=== PATIENT | male | born 1960 | race Two or more races ===

== ENCOUNTER 2025-09-18 09:57 | Inpatient (IN) | payer OTHER, SELFPAY ==
[2025-09-18] VITALS (9 sets, daily range): BP systolic 108–131; BP diastolic 56–72; PULSE 85–96; RESP 13–22; TEMP 36.8–38.3; O2SAT 84–100; BMI 26.6
--- NOTE | ~2025-09-18 | XR_ITS ---
EXAMINATION: XR CHEST CLINICAL INFORMATION: cough COMPARISON: None available. TECHNIQUE: Frontal view of the chest was obtained. FINDINGS: Devices: Overlying monitoring leads Cardiomediastinal: Cardiac silhouette size is within normal limits. Lungs and pleura: Central vascular prominence. Increased interstitial markings and hazy opacities. No confluent consolidation.. No significant effusion. No pneumothorax. Bones: No acute findings Miscellaneous: None. XR/XR chest 1V IMPRESSION: Vascular vascular interstitial prominence, with hazy opacities. This could be related to mild edema, or inflammatory/infectious process... Electronically signed by: Prateek Raines MD 09/18/2025 11:36 AM EST
--- NOTE | ~2025-09-18 | XR_ITS ---
EXAMINATION: XR FOOT, LEFT CLINICAL INFORMATION: concern for osteo, pain COMPARISON: None available. TECHNIQUE: AP, lateral, and oblique views of the left foot. FINDINGS: Small ossific density is present in the soft tissues lateral to the head of the fourth proximal phalanx is likely a chronic change. There is nonaggressive appearing erosion involving the lateral tuft of the first distal phalanx likely adjacent to an area of soft tissue ulceration. Moderate atherosclerotic calcifications are present in the foot and ankle. XR/XR foot LT min 3V IMPRESSION: Aggressive appearing focal erosion in the lateral tuft of the first distal phalanx adjacent an area of soft tissue ulceration is likely related to osteomyelitis. Electronically signed by: Daniel Hernandez MD 09/18/2025 11:41 AM [facility]
--- NOTE | ~2025-09-18 | XR_ITS ---
EXAMINATION: XR KNEE, RIGHT CLINICAL INFORMATION: concern for osteo of stump COMPARISON: None available. TECHNIQUE: Two views of the right knee. FINDINGS: Patient is status post above knee amputation. There is a slight undulation of the soft tissue of the amputation stump, clinically correlate for possible soft tissue abnormality such as soft tissue wound /ulceration. There is periosteal reaction along the distal aspect of the stump and the distal bone.. Vascular calcification. No soft tissue pneumatosis is seen. XR/XR knee RT 4V IMPRESSION: Status post above knee amputation. Clinically correlate for possible soft tissue wound/ulceration of the distal stump. There is periosteal reaction along the distal bone.. Findings raise concern for possible osteomyelitis. Recommend MRI without and with contrast for evaluation. Electronically signed by: Prateek Raines MD 09/18/2025 11:41 AM [facility]
--- NOTE | 2025-09-18 10:12 | ED_ITS ---
HPI - General Adult General Chief complaint: General Medical Stated complaint: Lower extremity edema Time Seen by Provider: 09/18/25 10:12 Source: patient and EMS Mode of arrival: EMS Limitations: no limitations History of Present Illness ED Provider: Kathy Lopez PA-C HPI narrative: Patient is a 65 year old assigned male at with a history of CAD, DM, HFrEF, HTN, PVD, polysubstance dependence, right AKA by Dr. Gardiner of [facility] on 08/01/2025 secondary to septic foot presenting to the emergency department today with significant lower extremity swelling and SOB. Patient states that he has been swollen the last few days and generally unwell. Patient currently residing at [facility]. Patient denies any other complaints at this time. Related Data Home Medications ?Medication ?Instructions ?Recorded ?Confirmed carvedilol 25 mg tablet 25 mg PO BID 09/18/25 clopidogrel 75 mg tablet 75 mg PO DAILY 09/18/25 furosemide 40 mg tablet 40 mg PO BID 09/18/25 insulin glargine 100 unit/mL (3 25 unit subcut DAILY 1 11/18/24 mL) subcutaneous pen (Lantus Solostar U-100 Insulin) insulin lispro 100 unit/mL 10 unit subcut DAILY subcutaneous pen losartan 25 mg tablet 25 mg PO DAILY 09/18/25 metformin 1,000 mg tablet 1,000 mg PO BID 09/18/25 pantoprazole 40 mg tablet,delayed 40 mg PO BID 5 release Allergies Allergy/AdvReac Type Severity Reaction Status Date / Time No Known Allergies Allergy Verified 09/18/25 10:15 Review of Systems 2 Constitutional: Constitutional: Reports as per HPI Eyes: Eyes: Reports as per HPI ENT: Reports as per HPI Cardiovascular: Cardiovascular: Reports as per HPI Respiratory: Respiratory: Reports as per HPI Gastrointestinal: Gastrointestinal: Reports as per HPI Genitourinary: Genitourinary: Reports as per HPI Musculoskeletal: Musculoskeletal: Reports as per HPI Integumentary/Breasts: Skin/Breast: Reports as per HPI Neurologic: Reports as per HPI Psychiatric: Psychiatric: Reports as per HPI Endocrine: Endocrine: Reports as per HPI Hematologic/Lymphatic: Hematologic/Lymphatic: Reports as per HPI Allergic/Immunologic: Allergic/Immunologic: Reports as per HPI [facility] Past Medical History Attestation statement: The following information was validated with the patient. Source: old records reviewed and nursing notes reviewed Medical History (Updated 09/18/25 @ 14:41 by RUDY Vidal) STEMI (ST elevation myocardial infarction) Peripheral neuropathy Chronic wound PAD (peripheral artery disease) Hypertension Diabetes mellitus CAD (coronary artery disease) HFrEF (heart failure with reduced ejection fraction) Surgical History (Updated 09/18/25 @ 14:26 by Adriana Johnson NP) H/O cardiac catheterization Hx of AKA (above knee amputation) Social History Social History Patient Tobacco Use Status: Never used Tobacco Smoked in Last 30 Days: No Use of substances other than those prescribed or required for medical reasons: No Advance Directives: No Advance Directives Information Provided: Yes Do you have a plan to hurt others: No Plan Nutrition Risks: No Nutritional Risk Physical Exam ED Vital Signs: Vital Signs - 24 hr 09/18/25 10:03 09/18/25 11:11 09/18/25 11:11 Temperature 100.9 F H Pulse Rate 96 85 Respiratory Rate 22 H 15 Blood Pressure 131/70 117/62 Pulse Oximetry 96 84 L 100 Oxygen Delivery Method Room Air Room Air Nasal Cannula Oxygen Flow Rate 2 09/18/25 11:29 09/18/25 11:40 Temperature 100.1 F Pulse Rate 85 Respiratory Rate 16 Blood Pressure 115/66 110/72 Pulse Oximetry 99 Oxygen Delivery Method Nasal Cannula Oxygen Flow Rate 2 BMI result Body Mass Index 26.6 Const General: cooperative, no acute distress, alert and awake Nutritional Appearance: well nourished Orientation/consciousness: patient oriented x3 HENMT Head: Yes normal to inspection and Yes atraumatic Ears: hearing grossly normal bilaterally and external ears normal General nose exam: Normal external nose present, no nasal discharge noted and no epistaxis Face and sinus: Yes normal facial exam, No abrasion and No laceration Mouth: Normal oral and palatal mucosa present, no drooling and no muffled voice Eyes General: appearance normal, both eyes and all related structures Periorbital: periorbital findings normal Eyelids: Yes eyelids normal Conjunctivae: conjunctivae normal Pupils: Equal, round and reactive pupils present EOM: EOMs intact bilaterally Neck Neck: Yes normal visual inspection and Yes full ROM Resp Effort & Inspection: normal respiratory effort and able to speak in complete sentences Auscultation: crackles bilateral at the base Other: Scrotal + penile swelling (genital exam performed with Director Of Respiratory Therapy Julisa Leigh RN) Neuro General: patient oriented x3, moves all extremities and CN's II-XI intact bilaterally Cranial nerves: Yes Equal, round and reactive pupils present Cognition (Neuro): normal cognition Extrem Other: Edema present to the right AKA stump Edema to the left lower extremity Erythema + warmth present to the right AKA surgical site Psych Appearance: grossly normal Mental Status: mental status grossly normal Affect: normal affect Attitude: cooperative Thought process: Normal thought process present Thought content: Normal thought content present Insight: Good insight present (Psych) Medications Administered Generic Name Dose Route Start Last Admin Trade Name Freq PRN Reason Stop Dose Admin Heparin Sodium (Porcine) 5,000 unit 09/18/25 13:00 09/18/25 13:53 Heparin Sodium,Porcine 5,000 Unit/Ml Vial SUBCUT 5,000 unit Q12H RAYMUNDO Administration Discontinued Medications Generic Name Dose Route Start Last Admin Trade Name Freq PRN Reason Stop Dose Admin Furosemide 20 mg 09/18/25 11:11 09/18/25 11:29 Furosemide 20 Mg/2 Ml Vial IVPUSH 09/18/25 11:12 20 mg ONCE ONE Administration Protocol Vancomycin HCl 2,000 mg in 500 mls @ 250 mls/hr 09/18/25 10:15 09/18/25 13:30 Vancomycin/Ns IV 09/18/25 12:14 Infused ONCE ONE Infusion Piperacillin Sod/Tazobactam 50 mls @ 100 mls/hr 09/18/25 10:17 09/18/25 11:39 Sod 3.375 gm/ Sodium Chloride IV 09/18/25 10:46 Infused ONCE ONE Infusion Acetaminophen 1,000 mg in 100 mls @ 400 mls/hr 09/18/25 10:28 09/18/25 10:58 Ofirmev IV 09/18/25 10:42 Infused ONCE ONE Infusion Medical Decision Making Medical Decision Making MDM Narrative: Patient is a 65 year old assigned male at with a history of CAD, DM, HFrEF, HTN, PVD, polysubstance dependence, right AKA by Dr. Gardiner of [facility] on 08/01/2025 secondary to septic foot presenting to the emergency department today with significant lower extremity swelling and SOB. Patient's physical exam was as noted in the physical exam portion of this note. Patient's right AKA incision was erythematous and warm to the touch. Patient's remaining portion of the right lower extremity is edematous. Patient's left great toe had an ulcerated wound on it. Patient's left lower extremity is edematous. Patient's scrotum + penis has edema. Patient was somewhat short of breath with crackles in the bases of his lungs. Patient was hypoxic at 84% on room air intermittently - placed on 2 liters of oxygen via nasal cannula which brought him up to 99%. Patient was febrile at 100.9 upon arrival. Patient's blood work showed an elevated WBC count of 12.9 with a left shift of 78.6%, ESR 42, CRP 2.67, BNP of 6254.8, AST 47, alk phos 458, albumin 2.8, BUN 41. Patient's right knee x-ray (right lower extremity stump) showed soft tissue wound / ulceration of the distal stump with periosteal reaction along the distal bone concerning for possible osteomyelitis. Patient's left foot x-ray showed aggressive appearing focal erosion in the lateral tuft of the first distal phalanx adjacent to an area of soft tissue ulceration - likely osteomyelitis. Patient's chest x-ray showed vascular interstitial prominence with hazy opacities - radiologist states this could be edema vs. inflammatory or infectious process. I suspected this patient could be septic at 1245. Patient was given IV vancomycin + Zosyn. Patient was given IV tylenol and his temperature improved to 100.1. Patient was given 20mg of IV lasix - although he is prescribed it, it was reported he has not been taking it. Patient's clinical presentation is most consistent with right lower extremity stump osteomyelitis, left great toe osteomyelitis, and CHF exacerbation with possible super imposed pneumonia as well as hypoxia requiring oxygenation. I spoke with the hospitalist team who agreed to admission. I explained my physical exam findings as well as all test results to the patient. I answered all questions asked by the patient. Patient verbalized agreement and understanding with this treatment plan and admission. Differential Diagnosis Differential Diagnoses: The differential diagnosis associated with the presentation includes Osteomyelitis Pneumonia Sepsis CHF exacerbation Admission/Observation Consideration of admission/observation: Escalation of care including admission/observation considered Patient admitted as noted in the MDM Rationale portion of this note. Consult Healthcare Provider Management of the patient was discussed with: Hospitalist (agreed to admission as noted in the MDM Rationale portion of this note. ) Lab Data [facility] Lab Attestation statement: I reviewed the patient's lab results. My interpretation of these results are in the MDM Rationale portion of this note. 09/18/25 10:31 09/18/25 10:31 Labs: Lab Results 09/18/25 09/18/25 Range/Units 10:31 10:40 WBC 12.9 H (4.8-10.8) X10*3/uL RBC 3.96 L (4.60-5.80) X10*6/uL Hgb 8.5 L (14.0-18.0) g/dl Hct 30.1 L (42.0-52.0) % MCV 76.0 L (80.0-98.0) fL MCH 21.5 L (27.0-33.0) pg MCHC 28.2 L (31.0-36.0) g/dl RDW 18.3 H (11.0-16.0) % Plt Count 363 (160-400) X10*3/uL MPV 11.7 (9.4-12.4) fL Immature Gran % (Auto) 0.5 H (0.0-0.4) % Neut % (Auto) 78.6 H (45-73) % Lymph % (Auto) 6.1 L (20-40) % [place] % (Auto) 12.7 H (2-11) % Eos % (Auto) 1.6 (0-4) % Baso % (Auto) 0.5 (0-2) % Lymph # (Auto) 0.8 L (1.2-4.9) X10*3/uL [place] # (Auto) 1.6 H (0.1-1.2) X10*3/uL Eos # (Auto) 0.2 (0.0-0.4) X10*3/uL Baso # (Auto) 0.1 (0.0-0.2) X10*3/uL Abs Immat Gran (auto) 0.07 H (0.00-0.03) X10*3/uL Absolute Neuts (auto) 10.1 H (2.0-8.3) x10*3/uL Absolute Nucleated RBC 0.000 (0.0-0.012) X10*3/uL Nucleated RBC % (auto) 0.0 (0.0-0.2) /100WBC Smear Tech's Comments VERIFIED ESR 42 H (0-15) MM/HR Sodium 136 (135-145) mmol/L Potassium 4.2 (3.3-5.1) mmol/L Chloride 103 (96-108) mmol/L Carbon Dioxide 24 (22-29) mmol/L Anion Gap 13 (12-20) BUN 41 H (9-16) mg/dL Creatinine 1.21 (0.5-1.4) mg/dL Estim Creat Clear Calc 57.6 Estimated GFR > 60 Random Glucose 211 H (60-115) mg/dL Lactic Acid 1.8 (0.5-2.0) mmol/L Calcium 8.7 (8.4-10.2) mg/dL Total Bilirubin 0.6 (0.0-1.0) mg/dL AST 47 H (5-37) U/L ALT 23 (0-40) U/L Alkaline Phosphatase 458 H (39-117) U/L C-Reactive Protein 2.67 H (< or = 0.50) mg/dL NT-Pro-B Natriuret Pep 6254.8 H (<300) pg/mL Total Protein 6.9 (6.5-8.0) g/dL Albumin 2.8 L (3.5-5.0) g/dL Influenza Type A (PCR) NEGATIVE (Negative) Influenza Type B (PCR) NEGATIVE (Negative) RSV RNA Qual (PCR) NEGATIVE (Negative) SARS-CoV-2 RNA (RT-PCR) NEGATIVE (Negative) Independent Interpretation I performed an independent interpretation of an: Plain X-Ray Interpretation: My interpretation is in agreement with the radiologist's impression of these imaging studies. L Reason for Exam: concern for osteo of stump EXAMINATION: XR KNEE, RIGHT CLINICAL INFORMATION: concern for osteo of stump COMPARISON: None available. TECHNIQUE: Two views of the right knee. FINDINGS: Patient is status post above knee amputation. There is a slight undulation of the soft tissue of the amputation stump, clinically correlate for possible soft tissue abnormality such as soft tissue wound /ulceration. There is periosteal reaction along the distal aspect of the stump and the distal bone.. Vascular calcification. No soft tissue pneumatosis is seen. XR/XR knee RT 4V IMPRESSION: Status post above knee amputation. Clinically correlate for possible soft tissue wound/ulceration of the distal stump. There is periosteal reaction along the distal bone.. Findings raise concern for possible osteomyelitis. Recommend MRI without and with contrast for evaluation. Electronically signed by: Prateek Raines MD 09/18/2025 11:41 AM EST RP Dictated By: Prateek Raines MD Signed By: Electronically signed by Prateek Raines MD 09/18/25 1141 Reason for Exam: concern for osteo, pain EXAMINATION: XR FOOT, LEFT CLINICAL INFORMATION: concern for osteo, pain COMPARISON: None available. TECHNIQUE: AP, lateral, and oblique views of the left foot. FINDINGS: Small ossific density is present in the soft tissues lateral to the head of the fourth proximal phalanx is likely a chronic change. There is nonaggressive appearing erosion involving the lateral tuft of the first distal phalanx likely adjacent to an area of soft tissue ulceration. Moderate atherosclerotic calcifications are present in the foot and ankle. XR/XR foot LT min 3V IMPRESSION: Aggressive appearing focal erosion in the lateral tuft of the first distal phalanx adjacent an area of soft tissue ulceration is likely related to osteomyelitis. Electronically signed by: Daniel Hernandez MD 09/18/2025 11:41 AM EST RP Dictated By: Daniel Hernandez MD Signed By: Electronically signed by Daniel Hernandez MD 09/18/25 1141 Reason for Exam: cough EXAMINATION: XR CHEST CLINICAL INFORMATION: cough COMPARISON: None available. TECHNIQUE: Frontal view of the chest was obtained. FINDINGS: Devices: Overlying monitoring leads Cardiomediastinal: Cardiac silhouette size is within normal limits. Lungs and pleura: Central vascular prominence. Increased interstitial markings and hazy opacities. No confluent consolidation.. No significant effusion. No pneumothorax. Bones: No acute findings Miscellaneous: None. XR/XR chest 1V IMPRESSION: Vascular vascular interstitial prominence, with hazy opacities. This could be related to mild edema, or inflammatory/infectious process... Electronically signed by: Prateek Raines MD 09/18/2025 11:36 AM EST Dictated By: Prateek Raines MD Signed By: Electronically signed by Prateek Raines MD 09/18/25 1136 Radiology Impression Discussion of test interpretation with radiology: I have reviewed the radiologist's reading. Independent Historian Clinical information obtained from an independent historian. History obtained from or confirmed by: EMS (EMS provided additional history and confirmed the history provided by the patient. ) External Record Review External record reviewed: Outpatient record (reviewed most recent [facility] vascular note) Critical Care Time Critical Care Time Critical Care Time: Yes Total Critical Care Time: 46 Attestation: I spent 46 minutes of Critical Care Time with this patient. This does not include time spent on separately reported billable procedures. Discharge Plan Discharge Clinical Impression: Hypoxia Acute exacerbation of congestive heart failure Qualifiers: Heart failure type: unspecified Qualified Code(s): I50.9 - Heart failure, unspecified Sepsis Qualifiers: Sepsis type: sepsis due to unspecified organism Sepsis acute organ dysfunction status: unspecified Qualified Code(s): A41.9 - Sepsis, unspecified organism Osteomyelitis Qualifiers: Osteomyelitis type: unspecified type Osteomyelitis location: multiple sites Q ualified Code(s): M86.9 - Osteomyelitis, unspecified Patient Disposition: Admitted As Inpatient
[2025-09-18 10:40] LABS: Hematocrit 30.1 % (42.0-52.0); Hemoglobin 8.5 g/dl (14.0-18.0); Imm Gran Abs Auto 0.07 X10*3/uL (0.00-0.03); Imm Gran Pct Auto 0.5 % (0.0-0.4); Lymphocytes Absolute Auto 0.8 X10*3/uL (1.2-4.9); MANUAL DIFF FLAG SCAN; Mean Corpuscular HGB Conc 28.2 g/dl (31.0-36.0); Mean Corpuscular Hemoglobin 21.5 pg (27.0-33.0); Mean Corpuscular Volume 76.0 fL (80.0-98.0); NRBC Abs Auto 0.000 X10*3/uL (0.0-0.012); NRBC Pct Auto 0.0 /100WBC (0.0-0.2); Platelet Count 363 X10*3/uL (160-400); Red Blood Count 3.96 X10*6/uL (4.60-5.80); SCAN SMEAR FLAG 1; White Blood Count 12.9 X10*3/uL (4.8-10.8)
[2025-09-18 10:53] LABS: Alanine Aminotransferase 23 U/L (0-40); Albumin Level 2.8 g/dL (3.5-5.0); Alkaline Phosphatase 458 U/L (39-117); Anion Gap 13 (12-20); Aspartate Amino Transferase 47 U/L (5-37); Blood Urea Nitrogen 41 mg/dL (9-16); Calcium 8.7 mg/dL (8.4-10.2); Carbon Dioxide 24 mmol/L (22-29); Chloride 103 mmol/L (96-108); Creatinine Clr Calc Pharmacy 57.6; Estimated Glomerular Filt Rate > 60; Potassium 4.2 mmol/L (3.3-5.1); Sodium 136 mmol/L (135-145); Total Protein 6.9 g/dL (6.5-8.0)
[2025-09-18 11:23] LABS: Resp Syncy Virus RNA Qual PCR NEGATIVE (Negative); SARS COV2 PCR INHOUSE NEGATIVE (Negative)
[2025-09-18] MEDS: Furosemide 20 MG/2 ML VIAL IVPUSH (11:29)
[2025-09-18] MEDS: vancomycin/NS 2,000 MG/500 ML PLAST..BAG 250 MG IV (11:30)
--- NOTE | 2025-09-18 11:31 | PC.NURSE ---
patient noted to desat to 84% on RA w/ associated sob/wob. pt placed on 2L via NC w/ good effect. sob/wob decreased. pt positioned upright to promote patent airway. otherwise vss and up to date. nsr on the cardiac monitor technician. abx/medication administered per provider order. pt provided w/ urinal for convenience. pending scan results. plan of care ongoing. call paulino placed within reach.
--- NOTE | 2025-09-18 12:48 | PM.IMHP ---
History of Present Illness Date of Service: 09/18/25 Chief Complaint: foor pain 65 year old man presenting to the ED with foot swelling and sob. He was transferred from [facility] to [facility] [place] [facility]. He had Right AKA on 06/30/25 at [facility] [place] [place]. He denied fever, chills, nausea, vomiting, diarrhea or drainage to wound to his toe, he did report some redness from his AKA site. He reported pain to the toe of his left foot. Foot xray showed likely osteomyelitis to left foot. Plan will be to treat for osteomyelitis. Review of Systems Review of Systems: Denies any recent fever chills or decrease in appetite respiratory denies any shortness of breath or cough cardiovascular denied chest pain gastrointestinal denies any dysphagia abdominal pain nausea vomiting or diarrhea genitourinary denies any dysuria frequency or hematuria musculoskeletal See HPI neuropsych denies any weakness or seizures all other systems reviewed are negative [facility] Medical History (Updated 09/18/25 @ 14:41 by RUDY Vidal) STEMI (ST elevation myocardial infarction) Peripheral neuropathy Chronic wound PAD (peripheral artery disease) Hypertension Diabetes mellitus CAD (coronary artery disease) HFrEF (heart failure with reduced ejection fraction) Surgical History (Updated 09/18/25 @ 14:26 by Adriana Johnson NP) H/O cardiac catheterization Hx of AKA (above knee amputation) Social History Patient Tobacco Use Status: Never used Tobacco Smoked in Last 30 Days: No Use of substances other than those prescribed or required for medical reasons: No Advance Directives: No Advance Directives Information Provided: Yes Do you have a plan to hurt others: No Plan Nutrition Risks: No Nutritional Risk Meds Allergies Allergy/AdvReac Type Severity Reaction Status Date / Time No Known Allergies Allergy Verified 09/18/25 10:15 Active Medications: Current Medications Acetaminophen (Acetaminophen 325 Mg Tablet) 650 mg PO Q6H PRN PRN Reason: Pain, Mild 1-3,fever,headache Calcium Carbonate (Calcium Carbonate 750 Mg Tab.Chew) 750 mg PO Q4H PRN PRN Reason: Heartburn Heparin Sodium (Porcine) (Heparin Sodium,Porcine 5,000 Unit/Ml Vial) 5,000 unit SUBCUT Q12H RAYMUNDO Vancomycin HCl 1,000 mg/ (Sodium Chloride) 270 mls @ 270 mls/hr IV Q12H RAYMUNDO Magnesium Hydroxide (Milk Of Magnesia 30 Ml Oral.Susp) 30 ml PO DAILY PRN PRN Reason: Constipation Melatonin (Melatonin 3 Mg Tablet) 6 mg PO BEDTIME PRN PRN Reason: Insomnia Ondansetron HCl (Ondansetron Hcl 4 Mg/2 Ml Vial) 4 mg IVPUSH Q8H PRN PRN Reason: Nausea and Vomiting Pharmacy Consult (Consult Rx Vancomycin Dosing) 1 each MISCELLANE DAILY PRN PRN Reason: Consult order Sodium Chloride (0.9 % Sodium Chloride Flush 3 Ml Syringe) 3 ml IVFLUSH QSHIFT [facility] Home Medications ?Medication ?Instructions ?Recorded ?Confirmed ?Last Taken ?Type acetaminophen 325 mg tablet 650 mg PO Q6H PRN Fever/Pain 09/18/25 09/18/25 Unknown History acetaminophen 500 mg tablet 1,000 mg PO Q8H Pain 09/18/25 09/18/25 Unknown History aluminum-mag hydroxide-simethicone 10 ml PO DAILY PRN Constipation 09/18/25 09/18/25 Unknown History 200 mg-200 mg-20 mg/5 mL oral susp aspirin 81 mg tablet 81 mg PO DAILY 09/18/25 09/18/25 Unknown History atorvastatin 80 mg tablet 80 mg PO BEDTIME 09/18/25 09/18/25 Unknown History bisacodyl 10 mg rectal suppository 10 mg DC DAILY PRN Constipation 09/18/25 09/18/25 Unknown History carvedilol 12.5 mg tablet 12.5 mg PO BID 09/18/25 09/18/25 Unknown History clopidogrel 75 mg tablet 75 mg PO DAILY 09/18/25 09/18/25 Unknown History dextrose 40 % oral gel (Glutose-45) 40 g PO NEEDED PRN Hypoglycemia 09/18/25 09/18/25 Unknown History doxycycline monohydrate 100 mg 100 mg PO BID 09/18/25 09/18/25 Unknown History tablet furosemide 20 mg tablet 60 mg PO BID 09/18/25 09/18/25 Unknown History glucagon 1 mg solution for 1 mg subcut NEEDED PRN 09/18/25 09/18/25 Unknown History injection Hypoglycemia insulin glargine 100 unit/mL (3 25 unit subcut BEDTIME 09/18/25 09/18/25 Unknown History mL) subcutaneous pen (Lantus Solostar U-100 Insulin) insulin lispro 100 unit/mL See Protocol subcut DAILY 09/18/25 09/18/25 Unknown History subcutaneous pen losartan 25 mg tablet 25 mg PO DAILY 09/18/25 09/18/25 Unknown History magnesium hydroxide 400 mg/5 mL 30 ml PO DAILY PRN Constipation 09/18/25 09/18/25 Unknown History oral suspension (Milk of Magnesia) metolazone 2.5 mg tablet 2.5 mg PO DAILY 09/18/25 09/18/25 Unknown History oxycodone 5 mg tablet 5 mg PO Q8H PRN Pain 09/18/25 09/18/25 Unknown History pantoprazole 40 mg tablet,delayed 40 mg PO BID@0630,1630 09/18/25 09/18/25 Unknown History release pregabalin 50 mg capsule 50 mg PO TID Nerve Pain 09/18/25 09/18/25 Unknown History sennosides 8.6 mg tablet (senna) 8.6 mg PO BEDTIME PRN Constipation 09/18/25 09/18/25 Unknown History sodium phosphates 19 gram-7 118 ml DC DAILY PRN Constipation 09/18/25 09/18/25 Unknown History gram/118 mL enema (Fleet Enema) tamsulosin 0.4 mg capsule 0.4 mg PO BEDTIME 09/18/25 09/18/25 Unknown History Physical Exam Vital Signs and Narrative: Vital Signs: Last Vital Signs Temp 100.1 F 09/18/25 11:40 Pulse 85 09/18/25 11:40 Resp 16 09/18/25 11:40 BP 110/72 09/18/25 11:40 Pulse Ox 99 09/18/25 11:40 O2 Del Method Nasal Cannula 09/18/25 11:40 O2 Flow Rate 2 09/18/25 11:40 BMI result Body Mass Index 26.6 Appearing in no acute distress head is normocephalic atraumatic eyes pupils are PERRLA sclera is anicteric mouth throat mucous membranes are intact and moist neck is supple no lymphadenopathy, no JVD noted lung sounds are clear to auscultation heart regular rate rhythm, clear S1, S2 positive bowel sounds, abdomen is soft, nontender neuro patient is alert x3, no focal deficits Results Labs 09/18/25 10:31 09/18/25 10:31 Labs: Laboratory Results - last 24 hr 09/18/25 09/18/25 10:31 10:40 MCV 76.0 L MCH 21.5 L MCHC 28.2 L RDW 18.3 H Plt Count 363 MPV 11.7 Immature Gran % (Auto) 0.5 H Neut % (Auto) 78.6 H Lymph % (Auto) 6.1 L [place] % (Auto) 12.7 H Eos % (Auto) 1.6 Baso % (Auto) 0.5 Lymph # (Auto) 0.8 L [place] # (Auto) 1.6 H Eos # (Auto) 0.2 Baso # (Auto) 0.1 Abs Immat Gran (auto) 0.07 H Absolute Neuts (auto) 10.1 H Absolute Nucleated RBC 0.000 Nucleated RBC % (auto) 0.0 Smear Tech's Comments VERIFIED ESR 42 H Anion Gap 13 Estim Creat Clear Calc 57.6 Estimated GFR > 60 Random Glucose 211 H Lactic Acid 1.8 Calcium 8.7 Total Bilirubin 0.6 AST 47 H ALT 23 Alkaline Phosphatase 458 H C-Reactive Protein 2.67 H NT-Pro-B Natriuret Pep 6254.8 H Total Protein 6.9 Albumin 2.8 L Influenza Type A (PCR) NEGATIVE Influenza Type B (PCR) NEGATIVE RSV RNA Qual (PCR) NEGATIVE SARS-CoV-2 RNA (RT-PCR) NEGATIVE Imaging Radiologist's Impressions: Impressions Chest X-Ray 09/18/25 11:15 IMPRESSION: Vascular vascular interstitial prominence, with hazy opacities. This could be related to mild edema, or inflammatory/infectious process... Electronically signed by: Prateek Raines MD 09/18/2025 11:36 AM EST RP Foot X-Ray 09/18/25 11:24 IMPRESSION: Aggressive appearing focal erosion in the lateral tuft of the first distal phalanx adjacent an area of soft tissue ulceration is likely related to osteomyelitis. Electronically signed by: Daniel Hernandez MD 09/18/2025 11:41 AM EST RP Knee X-Ray 09/18/25 11:27 IMPRESSION: Status post above knee amputation. Clinically correlate for possible soft tissue wound/ulceration of the distal stump. There is periosteal reaction along the distal bone.. Findings raise concern for possible osteomyelitis. Recommend MRI without and with contrast for evaluation. Electronically signed by: Prateek Raines MD 09/18/2025 11:41 AM EST Assessment and Plan (1) Osteomyelitis: Status: Acute Plan 65 year old man admitted with osteomyelitis of left great toe Osteomyelitis Left great toe start IV vancomycin General surgery for possible debridement vs amputation Pain management ID consultation will need PICC Line HFrEF mild BNP 6254 IV lasix 40mg BID echocardiogram daily weights strict intake and output Right AKA redness, likely skin changes, but no infection Diabetes mellitus 2 ss, ada diet Hypertension soft blood pressure hold antihypertensives for now CAD hold plavix and asa incase surgical procedure DVT prophylaxis with heparin Full code Quality Stroke Does the patient have a stroke diagnosis?: No VTE Prior VTE?: No VTE Risk Level:: Medical - moderate - high VTE Device Contraindication: Treatment Not Indicated VTE Drug Contraindication: N/A - Med Ordered
--- NOTE | 2025-09-18 13:12 | PHA.PROG ---
Admission Date/Time: September 18, 2025 12:43 Indication: other Weight in k kg Adjusted body weight in Kg: [place] body weight in Kg: Obesity Dosing Indication % IBW: BMI 26.6 Serum Creatinine - Last 168 Hours 09/18/25 10:31 Creatinine 1.21 Estimated CrCl and GFR - Last 168 Hours 09/18/25 10:31 Estim Creat Clear Calc 57.6 Estimated GFR > 60 Vancomycin Loading Dose: 2000mg X1 Current Vancomycin Dosing Regimen: 1500mg Q24H Vancomycin Monitoring using AUC goal of 400 - 600 range with trough as surrogate marker: 530 Date and Time for next Vancomycin Level to be drawn: 09/20 @1000 Pharmacist Comments on Vancomycin Plan: getting trough after two doses as dosing is Q24H. To be adjusted as needed when first trough comes back. Predicted trough 15.2. Vancomycin dosing will take advantage of [employer] as a clinical decision support tool that uses Bayesian modeling to calculate individual patient's pharmacokinetic parameters and forecast the patient's drug concentration time course with the target goal AUC 24 range of 400 - 600 mg/L/hr.
[2025-09-18 14:52] LABS: Cannabinoid Screen Urine Not Detected (Not Detect)
[2025-09-18] MEDS: Albumin Human 25 % 100 ML IV ×2 (15:16→21:05)
--- NOTE | 2025-09-18 15:20 | PC.NURSE ---
vss and up to date aside from slightly soft BP - denies any dizziness/lightheadedness. nsr on the compliance monitor. pt titrated off of O2 and placed back on RA d/t improvement. no respiratory distress - no sob/wob noted. respirations even/unlabored. medication administered per provider order for soft BP - effectiveness pending. pt otherwise has no complaints. pending bed assignment. plan of care ongoing. call paulino placed within reach.
--- NOTE | 2025-09-18 16:07 | PHA.MEDREC ---
Addendum entered by Stef Lima PharmD 09/18/25 16:09: reviewed Original Note: Pharmacy Consult ? Medication Reconciliation Pharmacy has completed the medication reconciliation. Utilized list from [facility].
--- NOTE | 2025-09-18 16:49 | W.PM.IDCN ---
History of Present Illness Data of Consult Service Date: 09/18/25 Requesting physician: Adriana Johnson Primary Care Provider: Unknown Physician HPI Reason for consult: sepsis,OM He presents with worsening swelling legs and shortness of breath. He had temperature 100.9 and RR22 on admission. He has LLE swelling. He had right AKA by Dr Gardiner at [facility]. Review of Systems Review of Systems: Yes all other systems are reviewed and are negative PMFSH Past Medical History Medical History STEMI (ST elevation myocardial infarction) Peripheral neuropathy Chronic wound PAD (peripheral artery disease) Hypertension Diabetes mellitus CAD (coronary artery disease) HFrEF (heart failure with reduced ejection fraction) Family History Family history: reviewed and not pertinent Surgical History Surgical History H/O cardiac catheterization Hx of AKA (above knee amputation) Social History Social History Patient Tobacco Use Status: Never used Tobacco Smoked in Last 30 Days: No Use of substances other than those prescribed or required for medical reasons: No Advance Directives: No Advance Directives Information Provided: Yes Do you have a plan to hurt others: No Plan Nutrition Risks: No Nutritional Risk Meds Allergies Allergy/AdvReac Type Severity Reaction Status Date / Time No Known Allergies Allergy Verified 09/18/25 10:15 Active Medications: Current Medications Acetaminophen (Acetaminophen 325 Mg Tablet) 650 mg PO Q6H PRN PRN Reason: Pain, Mild 1-3,fever,headache Calcium Carbonate (Calcium Carbonate 750 Mg Tab.Chew) 750 mg PO Q4H PRN PRN Reason: Heartburn Dextrose (Dextrose 50 % 25 Gm/50 Ml Syringe) 25 gm IVPUSH Q15M PRN; Protocol PRN Reason: per Hypoglycemia Standing Ord. Furosemide (Furosemide 40 Mg/4 Ml Vial) 40 mg IVPUSH BID@0900,1800 RAYMUNDO; Protocol Glucose (Glucose Gel 15 Gm Gel..Gram.) 15 gm PO Q15M PRN; Protocol PRN Reason: per Hypoglycemia Standing Ord. Heparin Sodium (Porcine) (Heparin Sodium,Porcine 5,000 Unit/Ml Vial) 5,000 unit SUBCUT Q12H RAYMUNDO Last Admin: 09/18/25 13:53 Dose: 5,000 unit Vancomycin HCl 1,500 mg/ (Sodium Chloride) 500 mls @ 333.333 mls/hr IV Q24H [facility] Albumin Human (Kedbumin 25 %) 100 mls @ 100 mls/hr IV Q6H [facility] Stop: 09/18/25 21:44 Last Infusion: 09/18/25 16:39 Dose: Infused Insulin Human Lispro (Insulin Lispro 100 Unit/Ml 3 Ml Vial) 0 unit SUBCUT QIDACHS [facility]; Protocol Magnesium Hydroxide (Milk Of Magnesia 30 Ml Oral.Susp) 30 ml PO DAILY PRN PRN Reason: Constipation Melatonin (Melatonin 3 Mg Tablet) 6 mg PO BEDTIME PRN PRN Reason: Insomnia Ondansetron HCl (Ondansetron Hcl 4 Mg/2 Ml Vial) 4 mg IVPUSH Q8H PRN PRN Reason: Nausea and Vomiting Pharmacy Consult (Consult Rx Vancomycin Dosing) 1 each MISCELLANE DAILY PRN PRN Reason: Consult order Sodium Chloride (0.9 % Sodium Chloride Flush 3 Ml Syringe) [facility] Last Admin: 09/18/25 15:22 Dose: Not Given Home Medications ?Medication ?Instructions ?Recorded ?Confirmed ?Last Taken ?Type acetaminophen 325 mg tablet 650 mg PO Q6H PRN Fever/Pain 09/18/25 09/18/25 Unknown History acetaminophen 500 mg tablet 1,000 mg PO Q8H Pain 09/18/25 09/18/25 Unknown History aluminum-mag hydroxide-simethicone 10 ml PO DAILY PRN Constipation 09/18/25 09/18/25 Unknown History 200 mg-200 mg-20 mg/5 mL oral susp aspirin 81 mg tablet 81 mg PO DAILY 09/18/25 09/18/25 Unknown History atorvastatin 80 mg tablet 80 mg PO BEDTIME 09/18/25 09/18/25 Unknown History bisacodyl 10 mg rectal suppository 10 mg PA DAILY PRN Constipation 09/18/25 09/18/25 Unknown History carvedilol 12.5 mg tablet 12.5 mg PO BID 09/18/25 09/18/25 Unknown History clopidogrel 75 mg tablet 75 mg PO DAILY 09/18/25 09/18/25 Unknown History dextrose 40 % oral gel (Glutose-45) 40 g PO NEEDED PRN Hypoglycemia 09/18/25 09/18/25 Unknown History doxycycline monohydrate 100 mg 100 mg PO BID 09/18/25 09/18/25 Unknown History tablet furosemide 20 mg tablet 60 mg PO BID 09/18/25 09/18/25 Unknown History glucagon 1 mg solution for 1 mg subcut NEEDED PRN 09/18/25 09/18/25 Unknown History injection Hypoglycemia insulin glargine 100 unit/mL (3 25 unit subcut BEDTIME 09/18/25 09/18/25 Unknown History mL) subcutaneous pen (Lantus Solostar U-100 Insulin) insulin lispro 100 unit/mL See Protocol subcut DAILY 09/18/25 09/18/25 Unknown History subcutaneous pen losartan 25 mg tablet 25 mg PO DAILY 09/18/25 09/18/25 Unknown History magnesium hydroxide 400 mg/5 mL 30 ml PO DAILY PRN Constipation 09/18/25 09/18/25 Unknown History oral suspension (Milk of Magnesia) metolazone 2.5 mg tablet 2.5 mg PO DAILY 09/18/25 09/18/25 Unknown History oxycodone 5 mg tablet 5 mg PO Q8H PRN Pain 09/18/25 09/18/25 Unknown History pantoprazole 40 mg tablet,delayed 40 mg PO BID@0630,1630 09/18/25 09/18/25 Unknown History release pregabalin 50 mg capsule 50 mg PO TID Nerve Pain 09/18/25 09/18/25 Unknown History sennosides 8.6 mg tablet (senna) 8.6 mg PO BEDTIME PRN Constipation 09/18/25 09/18/25 Unknown History sodium phosphates 19 gram-7 118 ml PA DAILY PRN Constipation 09/18/25 09/18/25 Unknown History gram/118 mL enema (Fleet Enema) tamsulosin 0.4 mg capsule 0.4 mg PO BEDTIME 09/18/25 09/18/25 Unknown History Physical Exam Vital Signs: Vital Signs: Last Vital Signs Temp 98.5 F 09/18/25 14:31 Pulse 87 09/18/25 16:09 Resp 16 09/18/25 14:31 BP 108/58 L 09/18/25 16:09 Pulse Ox 95 09/18/25 16:09 O2 Del Method Room Air 09/18/25 14:31 O2 Flow Rate 2 09/18/25 11:40 BMI result Body Mass Index 26.6 Const: General: cooperative HEENT: Head: Yes normal to inspection Face and sinus: Yes normal facial exam Mouth: Normal oral and palatal mucosa present Teeth and gingiva: dentition normal Eyes: General: appearance normal, both eyes and all related structures Pupils: Equal, round and reactive pupils present Resp: Effort & Inspection: normal respiratory effort Cardio: Rate: regular rate Rhythm: regular rhythm GI: Palpation (GI): Soft to palpation and nontender : General: Yes no CVA tenderness Back/Spine/Pelvis: Back: no CVA tenderness Skin: General skin exam: no rashes or lesions noted Neuro: General: moves all extremities Cranial nerves: Yes Equal, round and reactive pupils present Extrem: Other: redness right AKA,swelling left foot great toe swelling bilateral plus 2 pitting edema and neuropathy General: Yes normal to inspection Psych: Appearance: grossly normal Results Labs 09/18/25 10:31 09/18/25 10:31 Labs: Short CBC 09/18/25 Range/Units 10:31 WBC 12.9 H (4.8-10.8) X10*3/uL Hgb 8.5 L (14.0-18.0) g/dl Hct 30.1 L (42.0-52.0) % Plt Count 363 (160-400) X10*3/uL BMP 09/18/25 10:31 Sodium 136 Potassium 4.2 Chloride 103 Carbon Dioxide 24 BUN 41 H Creatinine 1.21 Calcium 8.7 Liver Function 09/18/25 Range/Units 10:31 Total Bilirubin 0.6 (0.0-1.0) mg/dL AST 47 H (5-37) U/L ALT 23 (0-40) U/L Alkaline Phosphatase 458 H (39-117) U/L Albumin 2.8 L (3.5-5.0) g/dL Assessment and Plan (1) Sepsis: Qualifiers: Sepsis acute organ dysfunction status: unspecified Sepsis type: sepsis due to unspecified organism Qualified Code(s): A41.9 - Sepsis, unspecified organism Status: Acute (2) Osteomyelitis: Qualifiers: Osteomyelitis location: multiple sites Osteomyelitis type: unspecified type Qualified Code(s): M86.9 - Osteomyelitis, unspecified Status: Acute Plan Continue Vancomycin most likely cover strep. TTE if staph aureus Would give Vancomycin or Daptomycin for six weeks unless culture indicates otherwise. Will follow outpatient He doesnt need tagged WBC scan,treat as OM foot and stump
[2025-09-18] MEDS: Furosemide 40 MG/4 ML VIAL IVPUSH (17:43)
--- NOTE | 2025-09-18 18:10 | PC.NURSE ---
pt reporting increased pain to legs bilaterally - prn utilized. effectiveness pending.
[2025-09-18 18:26] LABS: Glucose, Whole Blood 320 mg/dL (60-115)
--- NOTE | 2025-09-18 19:26 | HO.POD-CONS ---
History of Present Illness Data of Consult Service Date: 09/18/25 Primary Care Provider: Unknown Physician HPI 65 y/o male pmhx of DM, CAD, STEMI, PAD, Right AKA (06/30/25), presents for left leg swelling and SOB. Transported from [facility]. Complaining of left big toe swelling and ulcer. Denies any pain to his foot. Pt states he has not seen his surgeon after his right AKA. At present he admits to feeling sick however denies N/V/C/SOB/CP. [facility] Past Medical History Medical History (Updated 09/18/25 @ 19:41 by Iraj Mccall DPM) STEMI (ST elevation myocardial infarction) Peripheral neuropathy Chronic wound PAD (peripheral artery disease) Hypertension Diabetes mellitus CAD (coronary artery disease) HFrEF (heart failure with reduced ejection fraction) Family History Family history: reviewed and not pertinent Surgical History Surgical History H/O cardiac catheterization Hx of AKA (above knee amputation) Social History Social History Patient Tobacco Use Status: Never used Tobacco Smoked in Last 30 Days: No Use of substances other than those prescribed or required for medical reasons: No Advance Directives: No Advance Directives Information Provided: Yes Do you have a plan to hurt others: No Plan Nutrition Risks: No Nutritional Risk Meds Allergies Allergy/AdvReac Type Severity Reaction Status Date / Time No Known Allergies Allergy Verified 09/18/25 10:15 Active Medications: Current Medications Acetaminophen (Acetaminophen 325 Mg Tablet) 650 mg PO Q6H PRN PRN Reason: Pain, Mild 1-3,fever,headache Calcium Carbonate (Calcium Carbonate 750 Mg Tab.Chew) 750 mg PO Q4H PRN PRN Reason: Heartburn Dextrose (Dextrose 50 % 25 Gm/50 Ml Syringe) 25 gm IVPUSH Q15M PRN; Protocol PRN Reason: per Hypoglycemia Standing Ord. Furosemide (Furosemide 40 Mg/4 Ml Vial) 40 mg IVPUSH BID@0900,1800 RAYMUNDO; Protocol Last Admin: 09/18/25 17:43 Dose: 40 mg Glucose (Glucose Gel 15 Gm Gel..Gram.) 15 gm PO Q15M PRN; Protocol PRN Reason: per Hypoglycemia Standing Ord. Heparin Sodium (Porcine) (Heparin Sodium,Porcine 5,000 Unit/Ml Vial) 5,000 unit SUBCUT Q12H [facility] Last Admin: 09/18/25 13:53 Dose: 5,000 unit Vancomycin HCl 1,500 mg/ (Sodium Chloride) 500 mls @ 333.333 mls/hr IV Q24H [facility] Albumin Human (Kedbumin 25 %) 100 mls @ 100 mls/hr IV Q6H [facility] Stop: 09/18/25 21:44 Last Infusion: 09/18/25 16:39 Dose: Infused Insulin Human Lispro (Insulin Lispro 100 Unit/Ml 3 Ml Vial) 0 unit SUBCUT QIDACHS [facility]; Protocol Last Admin: 09/18/25 18:20 Dose: 8 unit Magnesium Hydroxide (Milk Of Magnesia 30 Ml Oral.Susp) 30 ml PO DAILY PRN PRN Reason: Constipation Melatonin (Melatonin 3 Mg Tablet) 6 mg PO BEDTIME PRN PRN Reason: Insomnia Morphine Sulfate (Morphine Sulfate 4 Mg/Ml Cartridge) 4 mg IVPUSH Q4H PRN; Protocol PRN Reason: Pain, Severe (Pain Scale 7-10) Last Admin: 09/18/25 18:10 Dose: 4 mg Ondansetron HCl (Ondansetron Hcl 4 Mg/2 Ml Vial) 4 mg IVPUSH Q8H PRN PRN Reason: Nausea and Vomiting Oxycodone HCl (Oxycodone Hcl Immed Release 5 Mg Tablet) 10 mg PO Q4H PRN PRN Reason: Pain, Moderate(Pain Scale 4-6) Pharmacy Consult (Consult Rx Vancomycin Dosing) 1 each MISCELLANE DAILY PRN PRN Reason: Consult order Sodium Chloride (0.9 % Sodium Chloride Flush 3 Ml Syringe) 3 ml IVFLUSH QSHIFT [facility] Last Admin: 09/18/25 15:22 Dose: Not Given Home Medications ?Medication ?Instructions ?Recorded ?Confirmed ?Last Taken ?Type acetaminophen 325 mg tablet 650 mg PO Q6H PRN Fever/Pain 09/18/25 09/18/25 Unknown History acetaminophen 500 mg tablet 1,000 mg PO Q8H Pain 09/18/25 09/18/25 Unknown History aluminum-mag hydroxide-simethicone 10 ml PO DAILY PRN Constipation 09/18/25 09/18/25 Unknown History 200 mg-200 mg-20 mg/5 mL oral susp aspirin 81 mg tablet 81 mg PO DAILY 09/18/25 09/18/25 Unknown History atorvastatin 80 mg tablet 80 mg PO BEDTIME 09/18/25 09/18/25 Unknown History bisacodyl 10 mg rectal suppository 10 mg TN DAILY PRN Constipation 09/18/25 09/18/25 Unknown History carvedilol 12.5 mg tablet 12.5 mg PO BID 09/18/25 09/18/25 Unknown History clopidogrel 75 mg tablet 75 mg PO DAILY 09/18/25 09/18/25 Unknown History dextrose 40 % oral gel (Glutose-45) 40 g PO NEEDED PRN Hypoglycemia 09/18/25 09/18/25 Unknown History doxycycline monohydrate 100 mg 100 mg PO BID 09/18/25 09/18/25 Unknown History tablet furosemide 20 mg tablet 60 mg PO BID 09/18/25 09/18/25 Unknown History glucagon 1 mg solution for 1 mg subcut NEEDED PRN 09/18/25 09/18/25 Unknown History injection Hypoglycemia insulin glargine 100 unit/mL (3 25 unit subcut BEDTIME 09/18/25 09/18/25 Unknown History mL) subcutaneous pen (Lantus Solostar U-100 Insulin) insulin lispro 100 unit/mL See Protocol subcut DAILY 09/18/25 09/18/25 Unknown History subcutaneous pen losartan 25 mg tablet 25 mg PO DAILY 09/18/25 09/18/25 Unknown History magnesium hydroxide 400 mg/5 mL 30 ml PO DAILY PRN Constipation 09/18/25 09/18/25 Unknown History oral suspension (Milk of Magnesia) metolazone 2.5 mg tablet 2.5 mg PO DAILY 09/18/25 09/18/25 Unknown History oxycodone 5 mg tablet 5 mg PO Q8H PRN Pain 09/18/25 09/18/25 Unknown History pantoprazole 40 mg tablet,delayed 40 mg PO BID@0630,1630 09/18/25 09/18/25 Unknown History release pregabalin 50 mg capsule 50 mg PO TID Nerve Pain 09/18/25 09/18/25 Unknown History sennosides 8.6 mg tablet (senna) 8.6 mg PO BEDTIME PRN Constipation 09/18/25 09/18/25 Unknown History sodium phosphates 19 gram-7 118 ml TN DAILY PRN Constipation 09/18/25 09/18/25 Unknown History gram/118 mL enema (Fleet Enema) tamsulosin 0.4 mg capsule 0.4 mg PO BEDTIME 09/18/25 09/18/25 Unknown History Physical Exam Vital Signs: Vital Signs: Last Vital Signs Temp 98.2 F 09/18/25 17:40 Pulse 92 09/18/25 18:13 Resp 15 09/18/25 18:13 BP 127/72 09/18/25 18:13 Pulse Ox 96 09/18/25 18:13 O2 Del Method Room Air 09/18/25 18:13 O2 Flow Rate 2 09/18/25 11:40 BMI result Body Mass Index 26.6 Extrem: Other: *Bilateral Lower Extremity Focused Diabetic Foot Exam Vascular: DP left foot 1/4, PT non-palpable. CFT<3s to digits, TG warm to cool, moderate left hallux edema. Derm: Left distal halux tuft 3cm x 3cm dry fibrous ulcer with exposed bone. mild hallux erythema and edema. no drainage. Neuro: protective sensation grossly diminished to left lower extremity. Msk: s/p right AKA no pain to left hallux, ROM intact Results Labs 09/18/25 10:31 09/18/25 10:31 Labs: Short CBC 09/18/25 Range/Units 10:31 WBC 12.9 H (4.8-10.8) X10*3/uL Hgb 8.5 L (14.0-18.0) g/dl Hct 30.1 L (42.0-52.0) % Plt Count 363 (160-400) X10*3/uL BMP 09/18/25 10:31 Sodium 136 Potassium 4.2 Chloride 103 Carbon Dioxide 24 BUN 41 H Creatinine 1.21 Calcium 8.7 Liver Function 09/18/25 Range/Units 10:31 Total Bilirubin 0.6 (0.0-1.0) mg/dL AST 47 H (5-37) U/L ALT 23 (0-40) U/L Alkaline Phosphatase 458 H (39-117) U/L Albumin 2.8 L (3.5-5.0) g/dL Imaging Left foot x-ray: Radiologist's impression: 09/18/2025 left foot x-ray: IMPRESSION: Aggressive appearing focal erosion in the lateral tuft of the first distal phalanx adjacent an area of soft tissue ulceration is likely related to osteomyelitis. Assessment and Plan (1) Diabetic foot ulcer with osteomyelitis: Status: Acute Left foot x-rays: erosive changes to hallux distal phalanx consistent with OM Due to exposed bone, the patient was recommended source control via toe amputation. The patient states he is concerned about amputation due to history of right AKA and refused today. For IV abx treatment to be effective, the exposed bone to the left hallux will need to be resected. Recommend PAD work up and then will plan for wound debridement + resection of exposed bone. (2) Sepsis: Qualifiers: Sepsis acute organ dysfunction status: unspecified Sepsis type: sepsis due to unspecified organism Qualified Code(s): A41.9 - Sepsis, unspecified organism Status: Acute WBC 12.9 Temp 100.9 --> 98.2 09/18 Blood cx pending On Vanc/Zosyn (3) PAD (peripheral artery disease): Status: Acute Recommend non-invasive arterial studies. May require vascular consult pending results. Procedures Date of Service Date of Service: 09/18/25 [facility] Podiatry Dressing Details of Procedure: Procedure: Compression dressing left foot Indication: Left diabetic foot ulcer Description: Applied betadine-gauze, faizan, libertad to left foot. [address]452 - Multi-layer compressive dressing Procedure code (CPT) selection complete
[2025-09-18 20:54] LABS: Glucose, Whole Blood 260 mg/dL (60-115)
[2025-09-18] MEDS: oxyCODONE HCl Immed Release 5 MG TABLET 10 MG PO (21:03)
[2025-09-18] MEDS: 0.9 % Sodium Chloride Flush 3 ML SYRINGE IVFLUSH (21:06)
--- NOTE | 2025-09-18 23:54 | HO.SKINPHOTO ---
Location: Category: Stage: Length: Width: Depth: cm Location: Category: Stage: Length: Width: Depth: cm Location: Category: Stage: Length: Width: Depth: cm Location: Category: Stage: Length: Width: Depth: cm Location: Category: Stage: Length: Width: Depth: cm Location:coccyx Category: Stage: Length: Width: Depth: cm
[2025-09-19] VITALS (7 sets, daily range): BP systolic 113–144; BP diastolic 57–75; PULSE 83–96; RESP 16–22; TEMP 36–36.7; O2SAT 93–99; BMI 26.6
[2025-09-19 05:53] LABS: Hematocrit 29.8 % (42.0-52.0); Hemoglobin 8.3 g/dl (14.0-18.0); Mean Corpuscular HGB Conc 27.9 g/dl (31.0-36.0); Mean Corpuscular Hemoglobin 20.9 pg (27.0-33.0); Mean Corpuscular Volume 74.9 fL (80.0-98.0); NRBC Abs Auto 0.000 X10*3/uL (0.0-0.012); NRBC Pct Auto 0.0 /100WBC (0.0-0.2); Platelet Count 306 X10*3/uL (160-400); Red Blood Count 3.98 X10*6/uL (4.60-5.80); White Blood Count 12.2 X10*3/uL (4.8-10.8)
[2025-09-19 06:10] LABS: Anion Gap 14 (12-20); Blood Urea Nitrogen 43 mg/dL (9-16); Calcium 8.8 mg/dL (8.4-10.2); Carbon Dioxide 24 mmol/L (22-29); Chloride 103 mmol/L (96-108); Creatinine Clr Calc Pharmacy 58.1; Estimated Glomerular Filt Rate > 60; Potassium 3.8 mmol/L (3.3-5.1); Sodium 137 mmol/L (135-145)
--- NOTE | 2025-09-19 07:00 | CA_ITS ---
Transthoracic Echocardiogram Patient (Last, First, Middle): Mike Johnson, Gender: Male Date of : 1960 Age: 65 Procedure Date: 09/19/2025 Procedure Type: Transthoracic Echocardiogram Location: S3E Height: 167.64 cm Weight: 76.66 kg BSA: 1.86 m2 Heart Rate: bpm BP: 108 / 58 mmHg Helicopter Dispatcher: NURIS Referring MD: Adriana Johnson NP Symptoms: chf Study Quality: Good ECG Rhythm: Sinus Conclusions: - The left ventricular systolic function is severely decreased. The calculated ejection fraction is 27% by biplane method. - The basal inferior, basal inferoseptal, and basal inferolateral segments are akinetic. - Evidence suggests grade II (moderate) diastolic dysfunction. - Moderate to severe pulmonary hypertension is present. - No obvious valvular pathology seen on this study. Findings Left Ventricle Normal left ventricular cavity size. There is mildly increased left ventricular wall thickness. The left ventricular systolic function is severely decreased. The calculated ejection fraction is 27% by biplane method. There is evidence of regional wall motion abnormalities. There is severe global hypokinesis. Evidence suggests grade II (moderate) diastolic dysfunction. Wall Motion Rest Echo Findings The basal inferior, basal inferoseptal, and basal inferolateral segments are akinetic. Right Ventricle Mildly increased right ventricular cavity size. There is normal right ventricular systolic function. Atria Moderate biatrial enlargement. Aortic Valve There is a normal trileaflet aortic valve. There is no aortic valve stenosis. There is no aortic valve regurgitation. Mitral Valve The mitral valve appears normal. There is trace mitral valve regurgitation. There is no mitral valve stenosis. Pulmonic Valve The pulmonic valve is likely normal. Tricuspid Valve Normal tricuspid valve structure. There is mild tricuspid valve regurgitation. Moderate to severe pulmonary hypertension is present. Great Vessels The asc aorta is normal in size. Venous The inferior vena cava is mildly dilated and collapses less than 50% with inspiration. Pericardium/Pleural There is a trivial pericardial effusion. Prior Study Comparison No prior study available for comparison. Recommendations, Care & Conclusions No obvious valvular pathology seen on this study. Measurements 2D Linear Measurements IVSd: 1.04 0.6-0.9/0.6-1.0 cm LVIDd: 5.01 3.9-5.3/4.2-5.9 cm LVIDd Index: 2.69 2.4-3.2/2.2-3.1 cm/m2 LVIDs: 4.58 2.0-3.6 cm LVPWd: 1.02 0.7-1.1 cm Ao Root: 3.70 2.1-3.5 cm LA Diam: 4.60 2.7-3.8/3.0-4.0 cm LAIDs Index: 2.47 1.5-2.3 cm/m2 LV Mass: 236.75 67-162/88-224 g LV Mass Index: 127.28 43-95/49-115 g/m2 LVOT Diam: 2.10 3.0+(-)1.3 cm 2D Systolic Function EF 4C: 32.00 >55% EF 2C: 26.30 >55% EF BiP: 26.70 >55% Mitral Valve MV Pk E: 1.07 MV PK A: 0.54 MV Decel Time: 149.00 E/A: 2.00 E'Lateral: 5.22 E'Medial: 5.11 E/E' Med: 20.90 E/E' Lat: 20.50 PHT: 44.00 MVA PHT: 5.00 Decel [place]: 7.16 Aortic Valve AoV Pk Moshe: 0.97 AoV Mn Moshe: 0.69 AoV VTI: 0.18 AoV Pk Grad: 4.00 Aov Mn Grad: 2.00 MARITA Cont.VTI: 2.48 LVOT LVOT Pk Moshe: 0.68 LVOT Mn Moshe: 0.46 LVOT VTI: 0.13 LVOT Pk Grad: 2.00 LVOT Mn Grad: 1.00 LVOT Diam: 2.10 LVOT Area: 3.46 Diastolic Function MV Pk E: 1.07 MV Pk A: 0.54 E/A: 2.00 E'Medial: 5.11 E/E' Med: 20.90 E' Laterial: 5.22 E/E' Lat: 20.50 Right Ventricle TAPSE (mm): 17.00 TVS' Moshe: 10.00 Tricuspid Valve TR Pk Moshe: 3.68 TR Pk Grad: 54.00 RA Press: 15.00 RVSP: 69.00 Great Vessels Aorta Ao Root-2D: 3.70 2.0-3.7 cm Ao Asc: 3.30 2.1-3.4 cm Pulmonary Valve PV Pk Moshe: 0.71 Peak PV Grad: 2.00 Updated in Other Vendor System with Status of Final Daniel Talley MD electronically signed on 09/19/2025 2:26:14 PM with status of Final
[2025-09-19 07:43] LABS: Glucose, Whole Blood 98 mg/dL (60-115)
[2025-09-19] MEDS: 0.9 % Sodium Chloride Flush 3 ML SYRINGE IVFLUSH ×3 (08:10→20:21)
[2025-09-19] MEDS: Furosemide 40 MG/4 ML VIAL IVPUSH ×2 (08:11→17:04)
--- NOTE | 2025-09-19 10:26 | P.CONGS_ITS ---
History of Present Illness Consult details Consult date: 09/19/25 Narrative: 65-year-old gentleman presented to the emergency room with foot swelling and shortness of breath. He was transferred from rehab facility. Most recently had undergone right AKA at [facility] in June of this year by Dr. Demetri freeman. He has developed pain and discomfort of the left lower extremity in particular the left great toe. Concern for underlying bony infection. Of note he does have a remote history of smoking. He did quit several years prior and prior to that he smoked over a pack a day. Review of Systems 2 Review of Systems: Yes all other systems are reviewed and are negative Constitutional: Constitutional: Reports no additional constitutional complaints ENT: Reports Normal hearing present Cardiovascular: Cardiovascular: Denies chest pain, Denies chest pain at rest, Denies chest pain with activity and Denies pedal edema Respiratory: Respiratory: Denies cough Gastrointestinal: Gastrointestinal: Denies abdominal pain Musculoskeletal: Musculoskeletal: Denies abnormal gait, Denies muscle cramps and Denies radiating pain into limb Integumentary/Breasts: Skin/Breast: Denies skin ulcer and Denies wounds Neurologic: Reports Normal hearing present and Denies abnormal gait Psychiatric: Psychiatric: Reports no additional psychiatric complaints PMFSH Past Medical History Medical History STEMI (ST elevation myocardial infarction) Peripheral neuropathy Chronic wound PAD (peripheral artery disease) Hypertension Diabetes mellitus CAD (coronary artery disease) HFrEF (heart failure with reduced ejection fraction) Family History Family history: reviewed and not pertinent Surgical History Surgical History H/O cardiac catheterization Hx of AKA (above knee amputation) Social History Social History Household Members: Children Housing: Apartment Do you presently have visiting nurse or other home services: No (supposed to have after discharge) Patient Tobacco Use Status: Former Tobacco user service: No Meds Allergies Allergy/AdvReac Type Severity Reaction Status Date / Time No Known Allergies Allergy Verified 09/18/25 10:15 Active Medications: Current Medications Acetaminophen (Acetaminophen 325 Mg Tablet) 650 mg PO Q6H PRN PRN Reason: Pain, Mild 1-3,fever,headache Al Hydroxide/Mg Hydroxide (Magnesium Hydrox/Alum Hydrox 30 Ml Oral.Susp) 10 ml PO DAILY PRN PRN Reason: Constipation Aspirin (Aspirin 81 Mg Tab.Chew) 81 mg PO DAILY [facility] Last Admin: 09/19/25 08:11 Dose: 81 mg Atorvastatin Calcium (Atorvastatin Calcium 80 Mg Tablet) 80 mg PO BEDTIME RAYMUNDO Bisacodyl (Bisacodyl 10 Mg Supp.Rect) 10 mg IN DAILY PRN PRN Reason: Constipation Calcium Carbonate (Calcium Carbonate 750 Mg Tab.Chew) 750 mg PO Q4H PRN PRN Reason: Heartburn Carvedilol (Carvedilol 12.5 Mg Tablet) 12.5 mg PO BID [facility]; Protocol Last Admin: 09/19/25 08:11 Dose: 12.5 mg Clopidogrel Bisulfate (Clopidogrel Bisulfate 75 Mg Tablet) 75 mg PO DAILY [facility] Last Admin: 09/19/25 08:11 Dose: 75 mg Dextrose (Dextrose 50 % 25 Gm/50 Ml Syringe) 25 gm IVPUSH Q15M PRN; Protocol PRN Reason: per Hypoglycemia Standing Ord. Furosemide (Furosemide 40 Mg/4 Ml Vial) 40 mg IVPUSH BID@0900,1800 [facility]; Protocol Last Admin: 09/19/25 08:11 Dose: 40 mg Glucagon (Glucagon Hcl 1 Mg Vial) 1 mg SUBCUT DAILY PRN PRN Reason: Hypoglycemia Glucose (Glucose Gel 15 Gm Gel..Gram.) 15 gm PO Q15M PRN; Protocol PRN Reason: per Hypoglycemia Standing Ord. Heparin Sodium (Porcine) (Heparin Sodium,Porcine 5,000 Unit/Ml Vial) 5,000 unit SUBCUT Q12H [facility] Last Admin: 09/19/25 00:47 Dose: 5,000 unit Vancomycin HCl 1,500 mg/ (Sodium Chloride) 500 mls @ 333.333 mls/hr IV Q24H [facility] Insulin Glargine (Insulin Glargine,Hum.Rec.Anlog 100 Unit/Ml 10 Ml Vial) 25 unit SUBCUT BEDTIME [facility] Insulin Human Lispro (Insulin Lispro 100 Unit/Ml 3 Ml Vial) 0 unit SUBCUT QIDACHS [facility]; Protocol Last Admin: 09/19/25 07:45 Dose: Not Given Magnesium Hydroxide (Milk Of Magnesia 30 Ml Oral.Susp) 30 ml PO DAILY PRN PRN Reason: Constipation Melatonin (Melatonin 3 Mg Tablet) 6 mg PO BEDTIME PRN PRN Reason: Insomnia Metolazone (Metolazone 2.5 Mg Tablet) 2.5 mg PO DAILY [facility] Morphine Sulfate (Morphine Sulfate 4 Mg/Ml Cartridge) 4 mg IVPUSH Q4H PRN; Protocol PRN Reason: Pain, Severe (Pain Scale 7-10) Last Admin: 09/19/25 08:10 Dose: 4 mg Ondansetron HCl (Ondansetron Hcl 4 Mg/2 Ml Vial) 4 mg IVPUSH Q8H PRN PRN Reason: Nausea and Vomiting Oxycodone HCl (Oxycodone Hcl Immed Release 5 Mg Tablet) 10 mg PO Q4H PRN PRN Reason: Pain, Moderate(Pain Scale 4-6) Last Admin: 09/18/25 21:03 Dose: 10 mg Pantoprazole Sodium (Pantoprazole Sodium 20 Mg Tablet.Dr) 40 mg PO BID@0630,1630 [facility] Last Admin: 09/19/25 08:11 Dose: 40 mg Pharmacy Consult (Consult Rx Vancomycin Dosing) 1 each MISCELLANE DAILY PRN PRN Reason: Consult order Pregabalin (Pregabalin 50 Mg Capsule) 50 mg PO TID [facility] Last Admin: 09/19/25 08:11 Dose: 50 mg Senna (Sennosides 8.6 Mg Tablet) 8.6 mg PO BEDTIME PRN PRN Reason: Constipation Sodium Biphosphate/Sodium Phosphate (Sodium Phosphate,Glynn-Dibasic 133 Ml Enema) 118 ml IN DAILY PRN PRN Reason: Constipation Sodium Chloride (0.9 % Sodium Chloride Flush 3 Ml Syringe) 3 ml IVFLUSH QSHIFT [facility] Last Admin: 09/19/25 08:10 Dose: 3 ml Tamsulosin HCl (Tamsulosin Hcl 0.4 Mg Capsule) 0.4 mg PO BEDTIME [facility] Home Medications ?Medication ?Instructions ?Recorded ?Confirmed ?Last Taken ?Type acetaminophen 325 mg tablet 650 mg PO Q6H PRN Fever/Pa in 09/18/25 09/18/25 Unknown History acetaminophen 500 mg tablet 1,000 mg PO Q8H Pain 09/1809/18/25 Unknown History aluminum-mag hydroxide-simethicone 10 ml PO DAILY PRN Constipation 09/18/25 09/18/25 Unknown History 200 mg-200 mg-20 mg/5 mL oral susp aspirin 81 mg tablet 81 mg PO DAILY 09/18/2509/02 Unknown History atorvastatin 80 mg tablet 80 mg PO BEDTIME 09/18/25 Unknown History bisacodyl 10 mg rectal suppository 10 mg IN DAILY PRN Constipation 09/18/25 09/18/25 Unknown History carvedilol 12.5 mg tablet 12.5 mg PO BID 09/18/2509/02 Unknown History clopidogrel 75 mg tablet 75 mg PO DAILY 09/18/2509/02 Unknown History dextrose 40 % oral gel (Glutose-45) 40 g PO NEEDED PRN Hypoglycemia 09/18/25 09/18/25 Unknown History doxycycline monohydrate 100 mg 100 mg PO BID 09/18/25 09/18/25 Unknown History tablet furosemide 20 mg tablet 60 mg PO BID 09/18/25 Unknown History glucagon 1 mg solution for 1 mg subcut NEEDED PRN 1 11/18/24 09/18/25 Unknown History injection Hypoglycemia insulin glargine 100 unit/mL (3 25 unit subcut BEDTIME 09/18/25 09/18/25 Unknown History mL) subcutaneous pen (Lantus Solostar U-100 Insulin) insulin lispro 100 unit/mL See Protocol subcut DAILY 1 11/18/24 09/18/25 Unknown History subcutaneous pen losartan 25 mg tablet 25 mg PO DAILY 09/18/2509/02 Unknown History magnesium hydroxide 400 mg/5 mL 30 ml PO DAILY PRN Con stipation 09/18/25 09/18/25 Unknown History oral suspension (Milk of Magnesia) metolazone 2.5 mg tablet 2.5 mg PO DAILY 09/18/25 Unknown History oxycodone 5 mg tablet 5 mg PO Q8H PRN Pain 5 09/18/25 Unknown History pantoprazole 40 mg tablet,delayed 40 mg PO BID@0630,16 30 09/18/25 09/18/25 Unknown History release pregabalin 50 mg capsule 50 mg PO TID Nerve Pain 09/0209/18/25 Unknown History sennosides 8.6 mg tablet (senna) 8.6 mg PO BEDTIME PRN Constipation 09/18/25 09/18/25 Unknown History sodium phosphates 19 gram-7 118 ml IN DAILY PRN Consti pation 09/18/25 09/18/25 Unknown History gram/118 mL enema (Fleet Enema) tamsulosin 0.4 mg capsule 0.4 mg PO BEDTIME 09/18/25 1 11/18/24 Unknown History Physical Exam 2 Vital Signs: Vital Signs: Last Vital Signs Temp 98.0 F 09/19/25 07:28 Pulse 90 09/19/25 08:11 Resp 17 09/19/25 07:28 BP 144/75 H 09/19/25 08:11 Pulse Ox 98 09/19/25 07:28 O2 Del Method Room Air 09/19/25 07:28 O2 Flow Rate 2 09/18/25 11:40 BMI result Body Mass Index 26.6 Const: General: cooperative, healthy appearing and comfortable O rientation/consciousness: oriented to person, oriented to place and oriented to time HEENT: Head: Yes normal to inspection Neck: Neck: Yes normal visual inspection Carotids: no bruits Chest: Chest palpation & inspection: normal inspection of the chest Resp: Effort & Inspection: normal respiratory effort and able to speak in complete sentences Auscultation: clear to auscultation bilaterally, no crackles, no rales, no rhonchi and no wheezes Cardio: Rate: regular rate Rhythm: regular rhythm Heart sounds: S1 normal heart sound present and S2 normal heart sound present Bruits: no carotid bruits Peripheral pulses: Peripheral pulses 2+ throughout GI: Inspection: Yes normal to inspection Skin: Other: Right AKA healing well, left great toe ulcer with exposed bone Wounds: no wounds Hair: normal Neuro: General: oriented to person, oriented to place and oriented to time Cranial nerves: Yes CN's II-XII intact bilaterally and Yes Normal hearing present Cognition (Neuro): normal cognition Motor exam (neuro): 5/5 motor strength present throughout Extrem: Other: venous exam: No significant superficial varicosities or spider telangiectasias, minimal edema General: No clubbing, No cyanosis and No edema Psych: Appearance: grossly normal Mental Status: mental status grossly normal Speech and movement: Normal speech and movement present Results Labs 09/19/25 05:44 09/20/25 05:30 Labs: Abnormal lab results 09/18/25 09/18/25 09/18/25 Range/Units 10:31 18:18 20:42 WBC 12.9 H (4.8-10.8) X10*3/uL RBC 3.96 L (4.60-5.80) X10*6/uL Hgb 8.5 L (14.0-18.0) g/dl Hct 30.1 L (42.0-52.0) % MCV 76.0 L (80.0-98.0) fL MCH 21.5 L (27.0-33.0) pg MCHC 28.2 L (31.0-36.0) g/dl RDW 18.3 H (11.0-16.0) % Immature Gran % (Auto) 0.5 H (0.0-0.4) % Neut % (Auto) 78.6 H (45-73) % Lymph % (Auto) 6.1 L (20-40) % Glynn % (Auto) 12.7 H (2-11) % Lymph # (Auto) 0.8 L (1.2-4.9) X10*3/uL Glynn # (Auto) 1.6 H (0.1-1.2) X10*3/uL Abs Immat Gran (auto) 0.07 H (0.00-0.03) X10*3/uL Absolute Neuts (auto) 10.1 H (2.0-8.3) x10*3/uL ESR 42 H (0-15) MM/HR BUN 41 H (9-16) mg/dL POC Glucose 320 H 260 H (60-115) mg/dL Random Glucose 211 H (60-115) mg/dL AST 47 H (5-37) U/L Alkaline Phosphatase 458 H (39-117) U/L C-Reactive Protein 2.67 H (< or = 0.50) mg/dL NT-Pro-B Natriuret Pep 6254.8 H (<300) pg/mL Albumin 2.8 L (3.5-5.0) g/dL 09/19/25 Range/Units 05:44 WBC 12.2 H (4.8-10.8) X10*3/uL RBC 3.98 L (4.60-5.80) X10*6/uL Hgb 8.3 L (14.0-18.0) g/dl Hct 29.8 L (42.0-52.0) % MCV 74.9 L (80.0-98.0) fL MCH 20.9 L (27.0-33.0) pg MCHC 27.9 L (31.0-36.0) g/dl RDW 18.1 H (11.0-16.0) % Immature Gran % (Auto) (0.0-0.4) % Neut % (Auto) (45-73) % Lymph % (Auto) (20-40) % Glynn % (Auto) (2-11) % Lymph # (Auto) (1.2-4.9) X10*3/uL Glynn # (Auto) (0.1-1.2) X10*3/uL Abs Immat Gran (auto) (0.00-0.03) X10*3/uL Absolute Neuts (auto) (2.0-8.3) x10*3/uL ESR (0-15) MM/HR BUN 43 H (9-16) mg/dL POC Glucose (60-115) mg/dL Random Glucose 120 H (60-115) mg/dL AST (5-37) U/L Alkaline Phosphatase (39-117) U/L C-Reactive Protein (< or = 0.50) mg/dL NT-Pro-B Natriuret Pep (<300) pg/mL Albumin (3.5-5.0) g/dL Short CBC 09/18/25 09/19/25 Range/Units 10:31 05:44 WBC 12.9 H 12.2 H (4.8-10.8) X10*3/uL Hgb 8.5 L 8.3 L (14.0-18.0) g/dl Hct 30.1 L 29.8 L (42.0-52.0) % Plt Count 363 306 (160-400) X10*3/uL BMP 09/18/25 09/19/25 10:31 05:44 Sodium 136 137 Potassium 4.2 3.8 Chloride 103 103 Carbon Dioxide 24 24 BUN 41 H 43 H Creatinine 1.21 1.20 Calcium 8.7 8.8 Liver Function 09/18/25 Range/Units 10:31 Total Bilirubin 0.6 (0.0-1.0) mg/dL AST 47 H (5-37) U/L ALT 23 (0-40) U/L Alkaline Phosphatase 458 H (39-117) U/L Albumin 2.8 L (3.5-5.0) g/dL All other labs normal. Assessment and Plan (1) PAD (peripheral artery disease): Status: Acute In short patient does have an element of peripheral vascular disease as he does not have palpable pulses.. We will plan for angiogram for tomorrow. Noninvasive testing has been ordered as well. P I have discussed the pathophysiology of peripheral vascular disease with the patient. I have also discussed risk factor modification. the patient would benefit from a left leg endovascular peripheral angiogram with possible angioplasty, stent, and/or atherectomy. This has been discussed in detail with the patient along with risks, benefits, and complications. This includes but is not limited to bleeding, infection, heart attack, need for emergent surgical repair, limb ischemia, blood vessel damage, bleeding, puncture, kidney injury, bruising, allergic reaction, and skin reaction. The patient demonstrates a clear understanding. We will schedule for the next appropriate time. Thank you for allowing us to assist in this patient's care. (2) Diabetic foot ulcer with osteomyelitis: Status: Acute Plan Continue with local wound care. Will need long-term IV antibiotics. Podiatry input appreciated as well. Thank you for allowing us to assist in his care. Procedures Date of Service Date of Service: 09/20/25
--- NOTE | 2025-09-19 10:51 | MHC.CLN ---
PT WITH INCREASED NUTRITION RISK R/T PRESSURE INJURY DIT RX: REGULAR-RECOMMEND 1800DM 2GM NA R/T DM AND CAD RECOMMEND ADDING ENSURE MAX BID TO PROMOTE WOUND HEALING SUPP TO PROVIDE 300KCALS, 60G PROTEIN MONITOR PO INTAKE AND ENCOURAGE SUPPLEMENTS SEE FULL ASSESSMENT
[2025-09-19 11:32] LABS: Glucose, Whole Blood 165 mg/dL (60-115)
--- NOTE | 2025-09-19 11:38 | P.PNIM_ITS ---
Subjective Subjective Date of Service: 09/19/25 Interval History: Possible foot osteo Review of Systems toe/foot seems similar no fevers Review of Systems: Yes all other systems are reviewed and are negative Physical Exam 2 Exam: Exam: Appearing in no acute distress lung sounds are clear to auscultation heart regular rate rhythm, clear S1, S2 positive bowel sounds, abdomen is soft, nontender neuro patient is alert x3, no focal deficits ext:Left distal halux tuft 3cm x 3cm dry fibrous ulcer, has some erythema . no gross drainage Vital Signs: Vital Signs: Last Vital Signs Temp 98.0 F 09/19/25 07:28 Pulse 90 09/19/25 08:11 Resp 17 09/19/25 07:28 BP 144/75 H 09/19/25 08:11 Pulse Ox 98 09/19/25 07:28 O2 Del Method Room Air 09/19/25 07:28 O2 Flow Rate 2 09/18/25 11:40 BMI result Body Mass Index 26.6 Objective Data Active Medications Acetaminophen (Acetaminophen 325 Mg Tablet) 650 mg PO Q6H PRN PRN Reason: Pain, Mild 1-3,fever,headache Al Hydroxide/Mg Hydroxide (Magnesium Hydrox/Alum Hydrox 30 Ml Oral.Susp) 10 ml PO DAILY PRN PRN Reason: Constipation Aspirin (Aspirin 81 Mg Tab.Chew) 81 mg PO DAILY [facility] Last Admin: 09/19/25 08:11 Dose: 81 mg Documented By: ALDEN Atorvastatin Calcium (Atorvastatin Calcium 80 Mg Tablet) 80 mg PO BEDTIME [facility] Bisacodyl (Bisacodyl 10 Mg Supp.Rect) 10 mg [place] DAILY PRN PRN Reason: Constipation Calcium Carbonate (Calcium Carbonate 750 Mg Tab.Chew) 750 mg PO Q4H PRN PRN Reason: Heartburn Carvedilol (Carvedilol 12.5 Mg Tablet) 12.5 mg PO BID [facility]; Protocol Last Admin: 09/19/25 08:11 Dose: 12.5 mg Documented By: ALDEN Clopidogrel Bisulfate (Clopidogrel Bisulfate 75 Mg Tablet) 75 mg PO DAILY [facility] Last Admin: 09/19/25 08:11 Dose: 75 mg Documented By: ALDEN Dextrose (Dextrose 50 % 25 Gm/50 Ml Syringe) 25 gm IVPUSH Q15M PRN; Protocol PRN Reason: per Hypoglycemia Standing Ord. Furosemide (Furosemide 40 Mg/4 Ml Vial) 40 mg IVPUSH BID@0900,1800 [facility]; Protocol Last Admin: 09/19/25 08:11 Dose: 40 mg Documented By: ALDEN Glucagon (Glucagon Hcl 1 Mg Vial) 1 mg SUBCUT DAILY PRN PRN Reason: Hypoglycemia Glucose (Glucose Gel 15 Gm Gel..Gram.) 15 gm PO Q15M PRN; Protocol PRN Reason: per Hypoglycemia Standing Ord. Heparin Sodium (Porcine) (Heparin Sodium,Porcine 5,000 Unit/Ml Vial) 5,000 unit SUBCUT Q12H [facility] Last Admin: 09/19/25 00:47 Dose: 5,000 unit Documented By: MARY Vancomycin HCl 1,500 mg/ (Sodium Chloride) 500 mls @ 333.333 mls/hr IV Q24H [facility] Sodium Chloride (Ns) 1,000 mls @ 100 mls/hr IVCONT .Q10H [facility] Insulin Glargine (Insulin Glargine,Hum.Rec.Anlog 100 Unit/Ml 10 Ml Vial) 25 unit SUBCUT BEDTIME [facility] Insulin Human Lispro (Insulin Lispro 100 Unit/Ml 3 Ml Vial) 0 unit SUBCUT QIDACHS [facility]; Protocol Last Admin: 09/19/25 07:45 Dose: Not Given Documented By: ALDEN Non-Admin Reason: No Insulin Coverage Magnesium Hydroxide (Milk Of Magnesia 30 Ml Oral.Susp) 30 ml PO DAILY PRN PRN Reason: Constipation Melatonin (Melatonin 3 Mg Tablet) 6 mg PO BEDTIME PRN PRN Reason: Insomnia Metolazone (Metolazone 2.5 Mg Tablet) 2.5 mg PO DAILY [facility] Morphine Sulfate (Morphine Sulfate 4 Mg/Ml Cartridge) 4 mg IVPUSH Q4H PRN; Protocol PRN Reason: Pain, Severe (Pain Scale 7-10) Last Admin: 09/19/25 08:10 Dose: 4 mg Documented By: ALDEN Ondansetron HCl (Ondansetron Hcl 4 Mg/2 Ml Vial) 4 mg IVPUSH Q8H PRN PRN Reason: Nausea and Vomiting Oxycodone HCl (Oxycodone Hcl Immed Release 5 Mg Tablet) 10 mg PO Q4H PRN PRN Reason: Pain, Moderate(Pain Scale 4-6) Last Admin: 09/18/25 21:03 Dose: 10 mg Documented By: MARY Pantoprazole Sodium (Pantoprazole Sodium 20 Mg Tablet.Dr) 40 mg PO BID@0630,1630 [facility] Last Admin: 09/19/25 08:11 Dose: 40 mg Documented By: ALDEN Pharmacy Consult (Consult Rx Vancomycin Dosing) 1 each MISCELLANE DAILY PRN PRN Reason: Consult order Pregabalin (Pregabalin 50 Mg Capsule) 50 mg PO TID [facility] Last Admin: 09/19/25 08:11 Dose: 50 mg Documented By: ALDEN Senna (Sennosides 8.6 Mg Tablet) 8.6 mg PO BEDTIME PRN PRN Reason: Constipation Sodium Biphosphate/Sodium Phosphate (Sodium Phosphate,[place]-Dibasic 133 Ml Enema) 118 ml [place] DAILY PRN PRN Reason: Constipation Sodium Chloride (0.9 % Sodium Chloride Flush 3 Ml Syringe) 3 ml IVFLUSH QSHIFT [facility] Last Admin: 09/19/25 08:10 Dose: 3 ml Documented By: ALDEN Tamsulosin HCl (Tamsulosin Hcl 0.4 Mg Capsule) 0.4 mg PO BEDTIME [facility] Labs 09/19/25 05:44 09/19/25 05:44 Labs: Laboratory Results - last 24 hr 09/18/25 09/18/25 09/18/25 14:29 18:18 20:42 MCV MCH MCHC RDW Plt Count MPV Absolute Nucleated RBC Nucleated RBC % (auto) Anion Gap Estim Creat Clear Calc Estimated GFR POC Glucose 320 H 260 H Random Glucose Calcium NT-Pro-B Natriuret Pep Urine Opiates Screen Not Detected Ur Buprenorphine Scrn Not Detected Ur Oxycodone Screen Not Detected Urine Methadone Screen Not Detected Urine Fentanyl Screen Not Detected Ur Barbiturates Screen Not Detected Ur Phencyclidine Scrn Not Detected Ur Amphetamines Screen Not Detected U Benzodiazepines Scrn Not Detected Urine Cocaine Screen Not Detected U Marijuana (THC) Screen Not Detected 09/19/25 09/19/25 09/19/25 05:44 07:26 09:18 MCV 74.9 L MCH 20.9 L MCHC 27.9 L RDW 18.1 H Plt Count 306 MPV 10.6 Absolute Nucleated RBC 0.000 Nucleated RBC % (auto) 0.0 Anion Gap 14 Estim Creat Clear Calc 58.1 Estimated GFR > 60 POC Glucose 98 Random Glucose 120 H Calcium 8.8 NT-Pro-B Natriuret Pep 5955.2 H Urine Opiates Screen Ur Buprenorphine Scrn Ur Oxycodone Screen Urine Methadone Screen Urine Fentanyl Screen Ur Barbiturates Screen Ur Phencyclidine Scrn Ur Amphetamines Screen U Benzodiazepines Scrn Urine Cocaine Screen U Marijuana (THC) Screen 09/19/25 11:24 MCV MCH MCHC RDW Plt Count MPV Absolute Nucleated RBC Nucleated RBC % (auto) Anion Gap Estim Creat Clear Calc Estimated GFR POC Glucose 165 H Random Glucose Calcium NT-Pro-B Natriuret Pep Urine Opiates Screen Ur Buprenorphine Scrn Ur Oxycodone Screen Urine Methadone Screen Urine Fentanyl Screen Ur Barbiturates Screen Ur Phencyclidine Scrn Ur Amphetamines Screen U Benzodiazepines Scrn Urine Cocaine Screen U Marijuana (THC) Screen Assessment and Plan (1) Osteomyelitis: Status: Acute Plan 65 year old man admitted with osteomyelitis of left great toe Osteomyelitis Left great toe esr 42, crp:2.67, blood cultures pending start IV vancomycin General surgery for possible debridement vs amputation Pain management ID consultation -follow blood cultures, continue iv antibiotics -may need Vancomycin or Daptomycin for six weeks unless culture indicates otherwise. seen by vascular:possible plan for angiogram for tomorrow. Noninvasive testing has been ordered as well. HFrEF mild i/o negatiive 350ml BNP [id number] IV lasix 40mg BID echocardiogram pending daily weights strict intake and output Right AKA redness, likely skin changes, but no infection Diabetes mellitus 2 ss, ada diet Hypertension soft blood pressure hold antihypertensives for now CAD hold plavix and asa incase surgical procedure DVT prophylaxis with heparin Full code ongoing need:osteomyleitis/chf -moniter renal function/electrolytes ,iv antibiotics ,awaiting vascular workup. Quality Stroke Does the patient have a stroke diagnosis?: No VTE Prior VTE?: No VTE Risk Level:: Medical - moderate - high VTE Device Contraindication: Treatment Not Indicated VTE Drug Contraindication: N/A - Med Ordered
--- NOTE | 2025-09-19 13:49 | MHC.CM.PN ---
PT DOES NOT WANT TO GO BACK TO REHAB WANTS TO GO HOME CALLED AND SPOKE PTS [facility] [phone] [facility] PCP IS ARON MORILLO [facility] PTS SON IS YANI NEGRON ELMER [phone] IS WHO PT WILL BE LIIVNG WITH HE REPORGS SON DGTER AND WILL ASSIST HIM AT HOME PT WILL NEED IV ANTIBIOTICS AT HOME VNA REFERALS MADE DC PLAN HOME
[2025-09-19 16:47] LABS: Glucose, Whole Blood 97 mg/dL (60-115)
[2025-09-19] MEDS: oxyCODONE HCl Immed Release 5 MG TABLET 10 MG PO (16:58)
--- NOTE | 2025-09-19 17:41 | HO.WOUND ---
Wound Consult: Initial 65yr old?male admitted to [facility] [place] on 09/18/25 - See progress notes and H&P for detailed history.? Wound consult placed for Coccyx.? Patient agreeable to assessment and photo documentation.? Of note the patient is followed by vascular surgery and Podiatry inpatient - see notes for recommendations and defer to topical recommendations to their services team. 09/19/25 Coccyx and Bilateral ischium Etiology: ?Stage 2 Pressure injury ?Present on Admission Measurements: Coccyx 2cm x 2cm x 0.2cm red moist wound bed with maceration noted Left ischium - resurfacing dry small scab wound bed 0.3cm x0.2cm x 0.1cm Right ischium - resurfacing dry small scab wound bed 0.2cm x0.1cm x 0.1cm - dry resurfaced tissue almost healed Drainage / Odor: None noted Marianela wound: MASD hyperpigmentation noted ? No Induration, Fluctuance or Warmth noted Pain: pain reported Goals of Treatment: ?Off load pressure and foam dressing Left Great Toe Left Lateral Leg - Weeping serous blisters - firm swelling noted - cool to touch Etiology: ??Diabetic Wound Present on Admission Measurements: 1.5cm x 2.5cm x 1cm Wound Bed: bone exposed necrotic tissue Drainage / Odor: foul odor noted Edges: ? unattached Marianela wound: pale cool toes ? No Induration, Fluctuance or Warmth noted Pain: denies pain Goals of Treatment: ? Betadine dry wrap defer to podiatry Right AKA incision Medial side dehiscence Etiology: ?dehiscence of incision Measurements: 0.2cm x 0.2cm x 1cm Wound Bed: depth with creamy purulent drainage Drainage / Odor: no odor Edges: ? unattached Marianela wound: pink hyperpigmented erythema, mild warmth and tenderness /pain - several sutures in place and grown into skin ? No Induration, Fluctuance or Warmth noted Pain: reports pain Goals of Treatment: Durafiber and defer to provider for assessment and further imaging if needed Recommendations: 1. Turn and Reposition every 2 hours and as needed for patient comfort.? Use pillows or wedges to support off loading positions. 2. Off Load all bony prominences with use of pillows and heel boots if needed.? Apply Preventative foams where needed. ?Waffle cushion added to recliner chair. 3. Monitor for incontinence and moisture control, use barrier creams when needed for prevention and treatment. 4. Provide adequate and supplemental nutrition.? 5. Order low air loss mattress. 6. When applicable maintain blood glucose levels per Providers order. Coccyx and Bilateral Ischium - Off Load Pressure with Q2 hr turns and use of pillows - Routine cleansing.? Apply skin prep allow to dry.? Cover with foam dressing to aid in off loading and protection from friction. Change every 3 days and PRN. Left Great Toe - Cleanse with betadine and apply dry gauze dressing followed by dry gauze wrap. Change daily. Right AKA - Cleanse with NS pat dry. Apply skin prep cover medial open area with durafiber AG followed by dry gauze, ABD pad. Change Daily while inpatient. Re-consult wound care Nurse for wound deterioration or wound changes.
[2025-09-19 20:41] LABS: Glucose, Whole Blood 76 mg/dL (60-115)
[2025-09-19 22:02] LABS: Glucose, Whole Blood 95 mg/dL (60-115)
[2025-09-19 23:33] LABS: Glucose, Whole Blood 135 mg/dL (60-115)
[2025-09-20] VITALS (30 sets, daily range): BP systolic 117–153; BP diastolic 62–99; PULSE 76–86; RESP 10–22; TEMP 36.1–36.8; O2SAT 92–100
--- NOTE | 2025-09-20 00:04 | P.PNID_ITS ---
Subjective Subjective Date of Service: 09/19/25 Critical Care Time (minutes): 15 Comment: he says hes getting bone removal left great toe tomorrow blood cultures negative Objective Data Labs 09/19/25 05:44 09/19/25 05:44 Labs: Laboratory Results - last 24 hr 09/19/25 09/19/25 09/19/25 05:44 07:26 09:18 WBC 12.2 H RBC 3.98 L Hgb 8.3 L Hct 29.8 L MCV 74.9 L MCH 20.9 L MCHC 27.9 L RDW 18.1 H Plt Count 306 MPV 10.6 Absolute Nucleated RBC 0.000 Nucleated RBC % (auto) 0.0 Sodium 137 Potassium 3.8 Chloride 103 Carbon Dioxide 24 Anion Gap 14 BUN 43 H Creatinine 1.20 Estim Creat Clear Calc 58.1 Estimated GFR > 60 POC Glucose 98 Random Glucose 120 H Calcium 8.8 NT-Pro-B Natriuret Pep 5955.2 H 09/19/25 09/19/25 09/19/25 11:24 16:29 20:36 WBC RBC Hgb Hct MCV MCH MCHC RDW Plt Count MPV Absolute Nucleated RBC Nucleated RBC % (auto) Sodium Potassium Chloride Carbon Dioxide Anion Gap BUN Creatinine Estim Creat Clear Calc Estimated GFR POC Glucose 165 H 97 76 Random Glucose Calcium NT-Pro-B Natriuret Pep 09/19/25 09/19/25 21:58 23:29 WBC RBC Hgb Hct MCV MCH MCHC RDW Plt Count MPV Absolute Nucleated RBC Nucleated RBC % (auto) Sodium Potassium Chloride Carbon Dioxide Anion Gap BUN Creatinine Estim Creat Clear Calc Estimated GFR POC Glucose 95 135 H Random Glucose Calcium NT-Pro-B Natriuret Pep Microbiology Microbiology Results: Microbiology 09/18/25 10:40 Blood - Venous Blood Culture - Preliminary No growth after 24 hours. 09/18/25 10:31 Blood - Venous Blood Culture - Preliminary No growth after 24 hours. Physical Exam 2 Vital Signs: Vital Signs: Last Vital Signs Temp 98.0 F 09/19/25 20:00 Pulse 87 09/19/25 20:00 Resp 18 09/19/25 20:00 BP 113/57 L 09/19/25 20:00 Pulse Ox 93 09/19/25 20:00 O2 Del Method Room Air 09/19/25 20:00 O2 Flow Rate 2 09/18/25 11:40 BMI result Body Mass Index 26.6 Const: General: cooperative HEENT: Head: Yes normal to inspection Face and sinus: Yes normal facial exam Mouth: Normal oral and palatal mucosa present Teeth and gingiva: d entition normal Eyes: General: appearance normal, both eyes and all related structures P upils: Equal, round and reactive pupils present Resp: Effort & Inspection: normal respiratory effort Cardio: Rate: regular rate Rhythm: regular rhythm GI: Palpation (GI): Soft to palpation and nontender : General: Yes no CVA tenderness Back/Spine/Pelvis: Back: no CVA tenderness Skin: General skin exam: no rashes or lesions noted Neuro: General: moves all extremities Cranial nerves: Yes Equal, round and reactive pupils present Extrem: Other: left great toe exposed bone Psych: Appearance: grossly normal Assessment and Plan Assessment and plan (1) Diabetic foot ulcer with osteomyelitis: Status: Acute Assessment and Plan: bone visible after debridemen Plan podiatry debridement Continue antiibotics for six weekafter ,Daptomycin likely Time Spent With Patient Time: Total time managing care of this patient today ____ minutes.
[2025-09-20 06:06] LABS: Creatinine Clr Calc Pharmacy 56.7; Estimated Glomerular Filt Rate 59
[2025-09-20] MEDS: 0.9 % Sodium Chloride Flush 3 ML SYRINGE IVFLUSH (07:32)
[2025-09-20] MEDS: oxyCODONE HCl Immed Release 5 MG TABLET 10 MG PO ×2 (07:32→13:40)
[2025-09-20 07:39] LABS: Glucose, Whole Blood 125 mg/dL (60-115)
--- NOTE | 2025-09-20 08:08 | PC.NURSE ---
patient has #22G IV to right hand. IV patent, flushes without difficulty. Dry, clean, dressing intact.
[2025-09-20 08:15] LABS: Glucose, Whole Blood 146 mg/dL (60-115)
[2025-09-20] MEDS: Heparin Sodium,Porcine 10,000 UNIT/10 ML VIAL 5000 UNIT IVPUSH (09:39)
--- NOTE | 2025-09-20 10:12 | P.PNIM_ITS ---
Subjective Subjective Date of Service: 09/20/25 Interval History: no new complaints Physical Exam 2 Vital Signs: Vital Signs: Last Vital Signs Temp 97.7 F 09/20/25 08:03 Pulse 83 09/20/25 10:10 Resp 22 H 09/20/25 10:10 BP 143/80 H 09/20/25 10:10 Pulse Ox 100 09/20/25 10:10 O2 Del Method Non-Rebreather Ma 09/20/25 10:10 O2 Flow Rate 10 09/20/25 10:10 BMI result Body Mass Index 26.6 Const: General: cooperative HEENT: Head: Yes normal to inspection Face and sinus: Yes normal facial exam Mouth: Normal oral and palatal mucosa present Teeth and gingiva: d entition normal Eyes: General: appearance normal, both eyes and all related structures P upils: Equal, round and reactive pupils present Resp: Effort & Inspection: normal respiratory effort Cardio: Rate: regular rate Rhythm: regular rhythm GI: Palpation (GI): Soft to palpation and nontender : General: Yes no CVA tenderness Back/Spine/Pelvis: Back: no CVA tenderness Skin: General skin exam: no rashes or lesions noted Neuro: General: moves all extremities Cranial nerves: Yes Equal, round and reactive pupils present Extrem: Other: left great toe exposed bone Psych: Appearance: grossly normal Objective Data Active Medications Acetaminophen (Acetaminophen 325 Mg Tablet) 650 mg PO Q6H PRN PRN Reason: Pain, Mild 1-3,fever,headache Al Hydroxide/Mg Hydroxide (Magnesium Hydrox/Alum Hydrox 30 Ml Oral.Susp) 10 ml PO DAILY PRN PRN Reason: Constipation Aspirin (Aspirin 81 Mg Tab.Chew) 81 mg PO DAILY FOR[facility]LY [facility], [facility] Last Admin: 09/19/25 08:11 Dose: 81 mg Documented By: ALDEN Atorvastatin Calcium (Atorvastatin Calcium 80 Mg Tablet) 80 mg PO BEDTIME FOR[facility]LY [facility], [facility] Last Admin: 09/19/25 20:21 Dose: 80 mg Documented By: MENDOZA Bisacodyl (Bisacodyl 10 Mg Supp.Rect) 10 mg AK DAILY PRN PRN Reason: Constipation Calcium Carbonate (Calcium Carbonate 750 Mg Tab.Chew) 750 mg PO Q4H PRN PRN Reason: Heartburn Carvedilol (Carvedilol 12.5 Mg Tablet) 12.5 mg PO BID [facility]LY [facility], [facility]; Protocol Last Admin: 09/19/25 20:21 Dose: 12.5 mg Documented By: MENDOZA Clopidogrel Bisulfate (Clopidogrel Bisulfate 75 Mg Tablet) 75 mg PO DAILY [facility], [facility] Last Admin: 09/19/25 08:11 Dose: 75 mg Documented By: ALDEN Dextrose (Dextrose 50 % 25 Gm/50 Ml Syringe) 25 gm IVPUSH Q15M PRN; Protocol PRN Reason: per Hypoglycemia Standing Ord. Furosemide (Furosemide 40 Mg/4 Ml Vial) 40 mg IVPUSH BID@0900,1800 [facility], [facility]; Protocol Last Admin: 09/19/25 17:04 Dose: 40 mg Documented By: ALDEN Glucagon (Glucagon Hcl 1 Mg Vial) 1 mg SUBCUT DAILY PRN PRN Reason: Hypoglycemia Glucose (Glucose Gel 15 Gm Gel..Gram.) 15 gm PO Q15M PRN; Protocol PRN Reason: per Hypoglycemia Standing Ord. Heparin Sodium (Porcine) (Heparin Sodium,Porcine 5,000 Unit/Ml Vial) 5,000 unit SUBCUT Q12H [facility], [facility] Last Admin: 09/20/25 00:45 Dose: Not Given Documented By: MENDOZA Non-Admin Reason: Patient Refused Vancomycin HCl 1,500 mg/ (Sodium Chloride) 500 mls @ 333.333 mls/hr IV Q24H [facility], [facility] Last Infusion: 09/19/25 13:25 Dose: Infused Documented By: ALDEN Sodium Chloride (Ns) 1,000 mls @ 100 mls/hr IVCONT .Q10H [facility], [facility] Last Admin: 09/20/25 08:32 Dose: 100 mls/hr Documented By: ALETHEA Insulin Glargine (Insulin Glargine,Hum.Rec.Anlog 100 Unit/Ml 10 Ml Vial) 25 unit SUBCUT BEDTIME [facility], [facility] Last Admin: 09/19/25 20:45 Dose: Not Given Documented By: MENDOZA Non-Admin Reason: Physician Held Med Insulin Human Lispro (Insulin Lispro 100 Unit/Ml 3 Ml Vial) 0 unit SUBCUT QIDACHS [facility], [facility]; Protocol Last Admin: 09/20/25 07:22 Dose: Not Given Documented By: NAYLA Non-Admin Reason: NPO Magnesium Hydroxide (Milk Of Magnesia 30 Ml Oral.Susp) 30 ml PO DAILY PRN PRN Reason: Constipation Melatonin (Melatonin 3 Mg Tablet) 6 mg PO BEDTIME PRN PRN Reason: Insomnia Metolazone (Metolazone 2.5 Mg Tablet) 2.5 mg PO DAILY [facility], [facility]1983 On Hold: 09/19/25 11:52 Last Admin: 09/19/25 11:46 Dose: 2.5 mg Documented By: ALDEN Morphine Sulfate (Morphine Sulfate 4 Mg/Ml Cartridge) 4 mg IVPUSH Q4H PRN; Protocol PRN Reason: Pain, Severe (Pain Scale 7-10) Last Admin: 09/19/25 12:17 Dose: 4 mg Documented By: ALDEN Ondansetron HCl (Ondansetron Hcl 4 Mg/2 Ml Vial) 4 mg IVPUSH Q8H PRN PRN Reason: Nausea and Vomiting Oxycodone HCl (Oxycodone Hcl Immed Release 5 Mg Tablet) 10 mg PO Q4H PRN PRN Reason: Pain, Moderate(Pain Scale 4-6) Last Admin: 09/20/25 07:32 Dose: 10 mg Documented By: CAMERON Pantoprazole Sodium (Pantoprazole Sodium 20 Mg Tablet.Dr) 40 mg PO BID@0630,1630 [facility], [facility] Last Admin: 09/20/25 06:30 Dose: Not Given Documented By: MENDOZA Non-Admin Reason: Patient Refused Pharmacy Consult (Consult Rx Vancomycin Dosing) 1 each MISCELLANE DAILY PRN PRN Reason: Consult order Pregabalin (Pregabalin 50 Mg Capsule) 50 mg PO TID [facility], [facility] Last Admin: 09/19/25 20:20 Dose: 50 mg Documented By: MENDOZA Senna (Sennosides 8.6 Mg Tablet) 8.6 mg PO BEDTIME PRN PRN Reason: Constipation Sodium Biphosphate/Sodium Phosphate (Sodium Phosphate,Cabarrus-Dibasic 133 Ml Enema) 118 ml AK DAILY PRN PRN Reason: Constipation Sodium Chloride (0.9 % Sodium Chloride Flush 3 Ml Syringe) [facility] Last Admin: 09/20/25 07:32 Dose: 3 ml Documented By: CAMERON Tamsulosin HCl (Tamsulosin Hcl 0.4 Mg Capsule) 0.4 mg PO BEDTIME [facility] Last Admin: 09/19/25 20:29 Dose: Not Given Documented By: MENDOZA Non-Admin Reason: Patient Refused Labs 09/19/25 05:44 09/20/25 05:30 Labs: Laboratory Results - last 24 hr 09/19/25 09/19/25 09/19/25 09:18 11:24 16:29 Hold Purple Top Estim Creat Clear Calc Estimated GFR POC Glucose 165 H 97 NT-Pro-B Natriuret Pep 5955.2 H 09/19/25 09/19/25 09/19/25 20:36 21:58 23:29 Hold Purple Top Estim Creat Clear Calc Estimated GFR POC Glucose 76 95 135 H NT-Pro-B Natriuret Pep 09/20/25 09/20/25 09/20/25 05:30 07:20 08:11 Hold Purple Top SEE NOTE Estim Creat Clear Calc 56.7 Estimated GFR 59 POC Glucose 125 H 146 H NT-Pro-B Natriuret Pep Microbiology Microbiology Results: Microbiology 09/18/25 10:40 Blood Culture - Preliminary Blood - Venous No growth after 24 hours. 09/18/25 10:31 Blood Culture - Preliminary Blood - Venous No growth after 24 hours. Assessment and Plan (1) PAD (peripheral artery disease): Status: Acute Plan 65M PMH CAD, HFrEF, PVD s/p right AKA 08/01/25, polysubstance dependence, HTN, DM, presented LLE swelling acute osteomyelitis due to Vascular disease and diabetes iv vanc, angio today ? plan for eventual amputation acute on chronic systolic CHF IV Lasix diabetes insulin sliding scale CAD dual antiplatelet, statin dvt prophylaixs- hep sq full code reason for continued hospitalization: iv abx, angio, plan for amp Quality Stroke Does the patient have a stroke diagnosis?: No VTE Prior VTE?: No VTE Risk Level:: Medical - moderate - high VTE Device Contraindication: Treatment Not Indicated VTE Drug Contraindication: N/A - Med Ordered
--- NOTE | 2025-09-20 10:50 | W.PM.OPN ---
Operative Note Operative Note Date of Service: 09/20/25 Narrative: Angiogram report from [facility] Preoperative diagnosis: Atherosclerosis of left lower extremity with nonhealing ulcer Postoperative diagnosis: Same Procedure: 1. Ultrasound-guided right common femoral access 2. Aortogram with left lower extremity runoff 3. Left popliteal atherectomy angioplasty Surgeon:Jermaine Newman M.D., FACS, [facility] [employer] Department Chair:None Anesthesia: Local with moderate conscious sedation. Total intraservice moderate sedation time was 69 minutes. I monitored the patient's level of consciousness and physiologic status continuously throughout the procedure. Specimens:none Drains:none Estimated blood loss: Less than 10 ml Radiation Dose: 290.6 mGy Implant: Medtronic impact DCB 4 x 40, 5 x 40 Indications: Pleasant 65-year-old gentleman with nonhealing left great toe ulcer. Had nonpalpable pulses. He now presents for endovascular intervention. The patient has signed the informed consent after reviewing risks, complications, benefits, and alternatives previously discussed with the patient. The patient was given the opportunity to ask any additional questions or voice any concerns. All questions were answered to the patient's satisfaction. Procedure in detail: Patient was brought to the angiography suite prior to which a time-out was called for patient identification and site verification. Bilateral groins were prepped and draped in the standard surgical fashion. Under ultrasound guidance right common femoral was punctured with micro puncture needle and wire. Subsequently a precision 5 [place]an sheath was then placed. Bentson wire was advanced to the level of the aorta. 5 [place] Flush catheter was brought up and parked at the level of the renal arteries. Aortogram was then undertaken. Catheter was brought down to the level of the iliac bifurcation. Iliacs and runoff was performed through the flush catheter that was parked at the bifurcation and a power injection was performed to visualize left runoff vessels. Subsequently the catheter was then brought in up and over to the side SFA. We recognized that there was an area of popliteal stenosis in the P1 segment and in the P3 segment there was a total occlusion. We at this time administered 5000 units of systemic heparin. After 5 minutes of circulation time up and over 6 [place]an sheath was placed. We then directed a Glidewire advantage down into the posterior tibial artery. It did take some direction and we had to use a Navicross catheter to support and directed in the appropriate direction. Once we were in true lumen we confirmed this by instilling the catheter with contrast. We then exchanged out for a 5 [place]an spider wire. Over this in the P1 segment and P3 segment we did multiple unidirectional passes to obtain good true lumen. There was less than 30% residual stenosis but there was still residual stenosis. At this time we 1st plasty the P3 segment with a 4 x 40 DCB. This was brought into position in under 3 minutes and insufflated for a total of 3 minutes in duration. We then turned our attention to the P1 segment and we brought a 5 x 40 drug coated balloon as well. In a similar fashion this was brought in an under 3 minutes and insufflated for a total of 3 minutes in duration. Completion angiogram demonstrated good result catheter wire sheath was brought back to the ipsilateral side. We exchanged out for a short 6 [place]an sheath. Through this we deployed aCELT 6 [place]an closure device. Patient tolerated the procedure well returned to recovery with stable vitals. Interpretation of films: 1. Ultrasound demonstrates appropriate femoral access site. Vessel was patent with minimal stenosis. Needle entry was visualized. Image of ultrasound was saved. 2. Aortogram demonstrates appropriate caliber aorta. Minimal disease. Appropriate take-off of the renals. 3. Iliac images demonstrate no significant disease 4. Left Leg Common femoral artery: No significant disease Profundus Femoris: No significant disease Superficial femoral artery: No significant disease Popliteal artery (p1,p2,p3): Moderate stenosis at the P1 segment total occlusion at the P3 segment Anterior tibial artery: Good runoff down to the ankle Peroneal artery: Diminutive but runoff to the ankle Posterior tibial artery: Good runoff to the ankle Dorsalis pedis/plantar arch: Present but incomplete. Does appear to supply the great toe. Conclusion: 1. Successful plasty of left popliteal artery. 2. Anticoagulation status: 6 months of aspirin and Plavix This note is constructed using voice recognition software. While every effort has been made to ensure accuracy, manufacturing scheduler errors may have been included. Thank you for allowing me to participate in the care of your patient. Yours sincerely, Jermaine Newman MD, FACS, R.P.V.I.
--- NOTE | 2025-09-20 11:01 | P.CONNP_ITS ---
History of Present Illness Reason for Consult Consult date: 09/20/25 Chief Complaint Chief complaint: nonhealing ulcer. left side History of Present Illness Narrative: 65-year-old lady with past medical history of hypertension, hyperlipidemia, diabetes mellitus, peripheral artery disease, CAD, HFrEF, right AKA is admitted to the hospital due to osteomyelitis of left great toe currently on IV vancomycin. Nephrology is consulted for PICC clearance Review of Systems Review of Systems Const : no body aches, no chills, no excessive sweating and + fatigue Eyes: no blurry vision and no change in vision ENT: no bleeding gums and no change in voice, no dizziness Card: no chest pain, no shortness of breath, no orthopnea, no PND Resp: no cough, no excessive phlegm production, no SOB GI: no abdominal pain and no nausea, no vomiting : no hematuria, no urinary frequency and no difficulty voiding Musc: no abnormal gait, no bone pain Neuro: no abnormal movements, no weakness, no dizziness, no abnormal gait and no behavioral changes Psych: no behavioral changes and no change in appetite Endo: no change in body appearance, and + fatigue PMFSH Past Medical History Medical History STEMI (ST elevation myocardial infarction) Peripheral neuropathy Chronic wound PAD (peripheral artery disease) Hypertension Diabetes mellitus CAD (coronary artery disease) HFrEF (heart failure with reduced ejection fraction) Family History Family history: reviewed and not pertinent Surgical History Surgical History H/O cardiac catheterization Hx of AKA (above knee amputation) Social History Social History Household Members: Children Housing: Apartment Do you presently have visiting nurse or other home services: No (supposed to have after discharge) Patient Tobacco Use Status: Former Tobacco user service: No Meds Allergies Allergy/AdvReac Type Severity Reaction Status Date / Time No Known Allergies Allergy Verified 09/18/25 10:15 Active Medications: Current Medications Acetaminophen (Acetaminophen 325 Mg Tablet) 650 mg PO Q6H PRN PRN Reason: Pain, Mild 1-3,fever,headache Al Hydroxide/Mg Hydroxide (Magnesium Hydrox/Alum Hydrox 30 Ml Oral.Susp) 10 ml PO DAILY PRN PRN Reason: Constipation Aspirin (Aspirin 81 Mg Tab.Chew) 81 mg PO DAILY [facility] Last Admin: 09/19/25 08:11 Dose: 81 mg Atorvastatin Calcium (Atorvastatin Calcium 80 Mg Tablet) 80 mg PO BEDTIME [facility] Last Admin: 09/19/25 20:21 Dose: 80 mg Bisacodyl (Bisacodyl 10 Mg Supp.Rect) 10 mg ND DAILY PRN PRN Reason: Constipation Calcium Carbonate (Calcium Carbonate 750 Mg Tab.Chew) 750 mg PO Q4H PRN PRN Reason: Heartburn Carvedilol (Carvedilol 12.5 Mg Tablet) 12.5 mg PO BID [facility]; Protocol Last Admin: 09/19/25 20:21 Dose: 12.5 mg Clopidogrel Bisulfate (Clopidogrel Bisulfate 75 Mg Tablet) 75 mg PO DAILY [facility] Last Admin: 09/19/25 08:11 Dose: 75 mg Dextrose (Dextrose 50 % 25 Gm/50 Ml Syringe) 25 gm IVPUSH Q15M PRN; Protocol PRN Reason: per Hypoglycemia Standing Ord. Furosemide (Furosemide 40 Mg/4 Ml Vial) 40 mg IVPUSH BID@0900,1800 [facility]; Protocol Last Admin: 09/19/25 17:04 Dose: 40 mg Glucagon (Glucagon Hcl 1 Mg Vial) 1 mg SUBCUT DAILY PRN PRN Reason: Hypoglycemia Glucose (Glucose Gel 15 Gm Gel..Gram.) 15 gm PO Q15M PRN; Protocol PRN Reason: per Hypoglycemia Standing Ord. Heparin Sodium (Porcine) (Heparin Sodium,Porcine 5,000 Unit/Ml Vial) 5,000 unit SUBCUT Q12H [facility] Last Admin: 09/20/25 00:45 Dose: Not Given Vancomycin HCl 1,500 mg/ (Sodium Chloride) 500 mls @ 333.333 mls/hr IV Q24H [facility] Last Infusion: 09/19/25 13:25 Dose: Infused Sodium Chloride (Ns) 1,000 mls @ 100 mls/hr IVCONT .Q10H [facility] Last Admin: 09/20/25 08:32 Dose: 100 mls/hr Insulin Glargine (Insulin Glargine,Hum.Rec.Anlog 100 Unit/Ml 10 Ml Vial) 25 unit SUBCUT BEDTIME [facility] Last Admin: 09/19/25 20:45 Dose: Not Given Insulin Human Lispro (Insulin Lispro 100 Unit/Ml 3 Ml Vial) 0 unit SUBCUT QIDACHS [facility]; Protocol Last Admin: 09/20/25 07:22 Dose: Not Given Magnesium Hydroxide (Milk Of Magnesia 30 Ml Oral.Susp) 30 ml PO DAILY PRN PRN Reason: Constipation Melatonin (Melatonin 3 Mg Tablet) 6 mg PO BEDTIME PRN PRN Reason: Insomnia Metolazone (Metolazone 2.5 Mg Tablet) 2.5 mg PO DAILY [facility] On Hold: 09/19/25 11:52 Last Admin: 09/19/25 11:46 Dose: 2.5 mg Morphine Sulfate (Morphine Sulfate 4 Mg/Ml Cartridge) 4 mg IVPUSH Q4H PRN; Protocol PRN Reason: Pain, Severe (Pain Scale 7-10) Last Admin: 09/19/25 12:17 Dose: 4 mg Ondansetron HCl (Ondansetron Hcl 4 Mg/2 Ml Vial) 4 mg IVPUSH Q8H PRN PRN Reason: Nausea and Vomiting Oxycodone HCl (Oxycodone Hcl Immed Release 5 Mg Tablet) 10 mg PO Q4H PRN PRN Reason: Pain, Moderate(Pain Scale 4-6) Last Admin: 09/20/25 07:32 Dose: 10 mg Pantoprazole Sodium (Pantoprazole Sodium 20 Mg Tablet.Dr) 40 mg PO BID@0630,1630 [facility] Last Admin: 09/20/25 06:30 Dose: Not Given Pharmacy Consult (Consult Rx Vancomycin Dosing) 1 each MISCELLANE DAILY PRN PRN Reason: Consult order Pregabalin (Pregabalin 50 Mg Capsule) 50 mg PO TID [facility] Last Admin: 09/19/25 20:20 Dose: 50 mg Senna (Sennosides 8.6 Mg Tablet) 8.6 mg PO BEDTIME PRN PRN Reason: Constipation Sodium Biphosphate/Sodium Phosphate (Sodium Phosphate,Cocke-Dibasic 133 Ml Enema) 118 ml ND DAILY PRN PRN Reason: Constipation Sodium Chloride (0.9 % Sodium Chloride Flush 3 Ml Syringe) 3 ml IVFLUSH QSHIFT [facility] Last Admin: 09/20/25 07:32 Dose: 3 ml Tamsulosin HCl (Tamsulosin Hcl 0.4 Mg Capsule) 0.4 mg PO BEDTIME [facility] Last Admin: 09/19/25 20:29 Dose: Not Given Home Medications ?Medication ?Instructions ?Recorded ?Confirmed ?Last Taken ?Type acetaminophen 325 mg tablet 650 mg PO Q6H PRN Fever/Pa in 09/18/25 09/18/25 Unknown History acetaminophen 500 mg tablet 1,000 mg PO Q8H Pain 09/1809/18/25 Unknown History aluminum-mag hydroxide-simethicone 10 ml PO DAILY PRN Constipation 09/18/25 09/18/25 Unknown History 200 mg-200 mg-20 mg/5 mL oral susp aspirin 81 mg tablet 81 mg PO DAILY 09/18/2509/02 Unknown History atorvastatin 80 mg tablet 80 mg PO BEDTIME 09/18/25 Unknown History bisacodyl 10 mg rectal suppository 10 mg ND DAILY PRN Constipation 09/18/25 09/18/25 Unknown History carvedilol 12.5 mg tablet 12.5 mg PO BID 09/18/2509/02 Unknown History clopidogrel 75 mg tablet 75 mg PO DAILY 09/18/2509/02 Unknown History dextrose 40 % oral gel (Glutose-45) 40 g PO NEEDED PRN Hypoglycemia 09/18/25 09/18/25 Unknown History doxycycline monohydrate 100 mg 100 mg PO BID 09/18/25 09/18/25 Unknown History tablet furosemide 20 mg tablet 60 mg PO BID 09/18/25 Unknown History glucagon 1 mg solution for 1 mg subcut NEEDED PRN 1 11/18/24 09/18/25 Unknown History injection Hypoglycemia insulin glargine 100 unit/mL (3 25 unit subcut BEDTIME 09/18/25 09/18/25 Unknown History mL) subcutaneous pen (Lantus Solostar U-100 Insulin) insulin lispro 100 unit/mL See Protocol subcut DAILY 1 11/18/24 09/18/25 Unknown History subcutaneous pen losartan 25 mg tablet 25 mg PO DAILY 09/18/2509/02 Unknown History magnesium hydroxide 400 mg/5 mL 30 ml PO DAILY PRN Con stipation 09/18/25 09/18/25 Unknown History oral suspension (Milk of Magnesia) metolazone 2.5 mg tablet 2.5 mg PO DAILY 09/18/25 Unknown History oxycodone 5 mg tablet 5 mg PO Q8H PRN Pain 5 09/18/25 Unknown History pantoprazole 40 mg tablet,delayed 40 mg PO BID@0630,16 30 09/18/25 09/18/25 Unknown History release pregabalin 50 mg capsule 50 mg PO TID Nerve Pain 09/0209/18/25 Unknown History sennosides 8.6 mg tablet (senna) 8.6 mg PO BEDTIME PRN Constipation 09/18/25 09/18/25 Unknown History sodium phosphates 19 gram-7 118 ml ND DAILY PRN Consti pation 09/18/25 09/18/25 Unknown History gram/118 mL enema (Fleet Enema) tamsulosin 0.4 mg capsule 0.4 mg PO BEDTIME 09/18/25 1 11/18/24 Unknown History Physical Exam Vital Signs: Last Vital Signs Temp 97.7 F 09/20/25 08:03 Pulse 83 09/20/25 10:35 Resp 18 09/20/25 10:35 BP 142/85 H 09/20/25 10:35 Pulse Ox 100 09/20/25 10:35 O2 Del Method Nasal Cannula 09/20/25 10:35 O2 Flow Rate 2 09/20/25 10:35 BMI result Body Mass Index 26.6 General: not in any acute distress Nutritional Appearance: well nourished and weight Eyes: normal position, no icterus Neck: No lymphadenopathy, no thyromegaly Resp: bilateral air entry equal, no added sounds present Cardio: normal S1, S2 heard, no murmur heard, no edema GI: soft, nontender, no guarding, no hepatosplenomegaly : bladder normal to inspection, bladder normal to palpation Skin: no rashes or lesions noted and elasticity normal Neuro: oriented to person, oriented to place, oriented to time and moves all extremities, right AKA Results Lab Results 09/19/25 05:44 09/20/25 05:30 Lab results: Chemistry 09/18/25 09/19/25 09/20/25 10:31 05:44 05:30 Sodium 136 137 Potassium 4.2 3.8 Carbon Dioxide 24 24 BUN 41 H 43 H Creatinine 1.21 1.20 1.23 Calcium 8.7 8.8 Hematology 09/18/25 09/19/25 10:31 05:44 WBC 12.9 H 12.2 H Hgb 8.5 L 8.3 L Plt Count 363 [id number] Assessment and Plan (1) Diabetic foot ulcer with osteomyelitis: Status: Acute (2) PAD (peripheral artery disease): Status: Acute Plan Patient has multiple risk factors for her CKD progression given her significant vascular disease in the form of PAD, CAD and HFrEF. However her most recent creatinine is 1.3 and GFR is 58 Weighing the risks versus benefits it is okay for the patient to get a PICC line for treating the osteomyelitis. Procedures Date of Service Date of Service: 09/20/25
--- NOTE | 2025-09-20 12:47 | MHC.CLN ---
F/U PT WITH INCREASED NUTRITION RISK R/T STAGE II PRESSURE INJURY TO COCCYX DIET RX: 2000 DM, 2GM NA R/T DM AND CAD ENSURE MAX BID TO PROMOTE WOUND HEALING SUPP TO PROVIDE 300KCALS, 60G PROTEIN PO INTAKE 25-50% MONITOR PO INTAKE AND ENCOURAGE SUPPLEMENTS
[2025-09-20] MEDS: Furosemide 40 MG/4 ML VIAL IVPUSH (13:04)
--- NOTE | 2025-09-20 13:18 | HE.PHANOTE ---
RE: VANCO DOSING Renal function is stable, second dose of 1500 mg was hung right after surgery without trough result. Trough is rescheduled for 09/21/25 @1000.
[2025-09-20 13:19] LABS: Glucose, Whole Blood 127 mg/dL (60-115)
--- NOTE | 2025-09-20 14:05 | MHC.CM.PN ---
EMR REVIEWED AND PER MD ROUNDS, PT IS NOT MEDICALLY CLEARED FOR DC (PT TO HAVE ANGIOPLASTY TODAY, ? EVENTUAL AMP?, IV RX) CM UNABLE TO SECURE A CONTRACTED [facility] FOR POST HOSPITAL CARE. CM WILL EXPAND REFERRALS. PT CONTINUES TO DECLINE STR, PLAN TO GO HOME TO SON'S HOME WITH FAMILY SUPPORT ON DC. PT WILL POSSIBLY NEED LT IV ABT VIA [facility] (PT /SON WILL NEED A TEACH) CM WILL CONTINUE TO FOLLOW FOR PLAN.
[2025-09-20 14:44] LABS: ACT 250 Celite s (79-173)
--- NOTE | 2025-09-20 16:07 | P.PNID_ITS ---
Subjective Subjective Date of Service: 09/20/25 Critical Care Time (minutes): 15 Comment: He remains afebrile and comfortable He had plasty of left popliteal artery today. Objective Data Labs 09/19/25 05:44 09/20/25 05:30 Labs: Laboratory Results - last 24 hr 09/19/25 09/19/25 09/19/25 16:29 20:36 21:58 Hold Purple Top Activated Clotting Time Creatinine Estim Creat Clear Calc Estimated GFR POC Glucose 97 76 95 09/19/25 09/20/25 09/20/25 23:29 05:30 07:20 Hold Purple Top SEE NOTE Activated Clotting Time Creatinine 1.23 Estim Creat Clear Calc 56.7 Estimated GFR 59 POC Glucose 135 H 125 H 09/20/25 09/20/25 09/20/25 08:11 09:45 13:14 Hold Purple Top Activated Clotting Time 250 H Creatinine Estim Creat Clear Calc Estimated GFR POC Glucose 146 H 127 H Microbiology Microbiology Results: Microbiology 09/18/25 10:40 Blood - Venous Blood Culture - Preliminary No growth after 48 hours. 09/18/25 10:31 Blood - Venous Blood Culture - Preliminary No growth after 48 hours. Physical Exam 2 Vital Signs: Vital Signs: Last Vital Signs Temp 98.2 F 09/20/25 16:00 Pulse 85 09/20/25 16:00 Resp 19 09/20/25 16:00 BP 124/67 09/20/25 16:00 Pulse Ox 98 09/20/25 16:00 O2 Del Method Room Air 09/20/25 16:00 O2 Flow Rate 2 09/20/25 12:45 BMI result Body Mass Index 26.6 Const: General: cooperative Resp: Effort & Inspection: normal respiratory effort Cardio: Rhythm: regular rhythm GI: Inspection: Yes normal to inspection Extrem: Other: extremity wrapped Assessment and Plan Assessment and plan (1) Osteomyelitis: Status: Acute Assessment and Plan: Patient will have pamela debridement and resection of affected exposed bone Plan Would continue Vancomycin total six weeks hopefully wound heals post plasty as no cure without removal of all affected bone and patient declines amputation. Weekly creatinine and Vancomycin level. I would like to see in followup. Time Spent With Patient Time: Total time managing care of this patient today ____ minutes.
--- NOTE | 2025-09-20 17:23 | P.DS_ITS ---
DS: Providers Provider Date of Service: 09/20/25 Date of admission: 09/18/25 12:43 Date of discharge: 09/20/25 Primary care physician: Unknown Physician Consults: 09/18/25 12:43 Consult to Infectious Diseases Routine Consulting Provider: [facility] Reason for consultation: osteomyeltis 09/18/25 14:32 Consult to General Surgery Routine Consulting Provider: [facility] Reason for consultation: left great to eschar Consult to Infectious Diseases Routine Consulting Provider: [facility] Reason for consultation: osteo 09/18/25 20:49 Consult to Wound Care Routine Consulting Provider: [facility] Reason for consultation: PI to coccyx 09/19/25 07:25 Consult to Vascular Surgery Routine Consulting Provider: [facility] Reason for consultation: foot osteomyelitis 09/19/25 14:45 Consult to Nephrology Routine Consulting Provider: [facility] Reason for consultation: ckd3/chf Has provider been notified: No DS: Diagnosis Discharge Diagnosis (1) Osteomyelitis: Status: Acute DS: Summary Hospital Course Hospital Course: from initial hpi: 65 year old man presenting to the ED with foot swelling and sob. He was [facility] to [facility]. He had Right AKA on 06/30/25 at [facility]. He denied fever, chills, nausea, vomiting, diarrhea or drainage to wound to his toe, he did report some redness from his AKA site. He reported pain to the toe of his left foot. Foot xray showed likely osteomyelitis to left foot. Plan will be to treat for osteomyelitis. hospital course: patient was admitted for acute osteomyelitis due to peripheral vascular disease and diabetes. Was treated with IV vancomycin, underwent angiogram with angioplasty plan was for possible debridement versus amputation and 6 weeks of IV vancomycin however patient decided to leave against medical advice he was able to express understanding of the risks of doing so including . Was also treated for acute on chronic systolic CHF with IV Lasix. For diabetes was treated with insulin sliding scale. For coronary artery disease continued on dual antiplatelet and statin. Time Attestation Discharge Coordination Time (in mins): 33 Quality: Safe Use of Opioids Does Pt have an Active Cancer Diagnosis on the Problem List?: No Quality: Stroke Does the patient have a stroke diagnosis?: No Physical Exam Vital Signs: Vital Signs: Last Vital Signs Temp 98.2 F 09/20/25 16:00 Pulse 85 09/20/25 16:00 Resp 19 09/20/25 16:00 BP 124/67 09/20/25 16:00 Pulse Ox 98 09/20/25 16:00 O2 Del Method Room Air 09/20/25 16:00 O2 Flow Rate 2 09/20/25 12:45 BMI result Body Mass Index 26.6 Const: General: cooperative Resp: Effort & Inspection: normal respiratory effort Cardio: Rhythm: regular rhythm GI: Inspection: Yes normal to inspection Extrem: Other: extremity wrapped DS: Data Data Completed and Pending Labs on day of discharge: Laboratory Results - last 24 hr 09/19/25 09/19/25 09/19/25 20:36 21:58 23:29 Hold Purple Top Activated Clotting Time Creatinine Estim Creat Clear Calc Estimated GFR POC Glucose 76 95 135 H 09/20/25 09/20/25 09/20/25 05:30 07:20 08:11 Hold Purple Top SEE NOTE Activated Clotting Time Creatinine 1.23 Estim Creat Clear Calc 56.7 Estimated GFR 59 POC Glucose 125 H 146 H 09/20/25 09/20/25 09:45 13:14 Hold Purple Top Activated Clotting Time 250 H Creatinine Estim Creat Clear Calc Estimated GFR POC Glucose 127 H Preliminary micro results at discharge 09/18/25 10:40 Blood Culture - Preliminary Blood - Venous No growth after 48 hours. 09/18/25 10:31 Blood Culture - Preliminary Blood - Venous No growth after 48 hours. Discharge Plan Discharge Anticipated Discharge Date/Time: 09/20/25 17:19 Patient Disposition: Left Against Medical Advice Discharge Diagnosis: om Referrals: Iraj Mccall DPM [Claim Inspector, Podiatry] - 1 Week Physician,Unknown J [Primary Care Provider, Medical] - 1 Week Discharge Medications: Continued clopidogrel 75 mg tablet 75 mg PO DAILY pantoprazole 40 mg tablet,delayed release (DR/EC) 40 mg PO BID@0630,1630 losartan 25 mg tablet 25 mg PO DAILY insulin lispro 100 unit/mL insulin pen See Protocol subcut DAILY Protocol: Insulin Correction Scale Less than or equal to 110 ---- Give (units): 0 111 to 150 Give (units): 0 151 to 200 Give (units): 2 201 to 250 Give (units): 4 251 to 300 Give (units): 6 301 to 350 Give (units): 8 Greater than 350 Give (units): 10 Call MD if Blood Glucose > : 350 insulin glargine [Lantus Solostar U-100 Insulin] 100 unit/mL (3 mL) insulin pen 25 unit subcut BEDTIME metolazone 2.5 mg Tablet 2.5 mg PO DAILY Rx Instructions: Start 09/13, end 09/20. atorvastatin 80 mg Tablet 80 mg PO BEDTIME sennosides [senna] 8.6 mg Tablet 8.6 mg PO BEDTIME PRN (Reason: Constipation) acetaminophen 325 mg Tablet 650 mg PO Q6H PRN (Reason: Fever/Pain) dextrose [Glutose-45] 40 % Gel 40 g PO NEEDED PRN (Reason: Hypoglycemia) Rx Instructions: Give one tube PO/SL if FSBS <50 and able to swallow PRN. Recheck FSBS 10 minutes after administration and call provider. doxycycline monohydrate 100 mg Tablet 100 mg PO BID Rx Instructions: Start date 09/13, end date 09/27. acetaminophen 500 mg Tablet 1,000 mg PO Q8H magnesium hydroxide [Milk of Magnesia] 400 mg/5 mL Suspension 30 ml PO DAILY PRN (Reason: Constipation) Rx Instructions: If no BM for 8 hours. tamsulosin 0.4 mg Capsule 0.4 mg PO BEDTIME bisacodyl 10 mg Suppository 10 mg NV DAILY PRN (Reason: Constipation) Rx Instructions: If no Bm in 8 hours after MoM. Fleet Enema 19-7 gram/118 mL Enema 118 ml NV DAILY PRN (Reason: Constipation) Rx Instructions: If no Bm in 8 hours after Bisacodyl Suppository. aspirin 81 mg Tablet 81 mg PO DAILY furosemide 20 mg Tablet 60 mg PO BID Rx Instructions: Start date 09/13, end date 09/18 alum-mag hydroxide-simeth [Mylanta] 200-200-20 mg/5 mL Suspension 10 ml PO DAILY PRN (Reason: Constipation) GlucaGen HypoKit 1 mg Recon Soln 1 mg SUBCUT NEEDED PRN (Reason: Hypoglycemia) Rx Instructions: If FSBS below 60 and unable to swallow. Recheck FSBS in 10 minutes and update provider. oxycodone 5 mg Tablet 5 mg PO Q8H PRN (Reason: Pain) pregabalin 50 mg Capsule 50 mg PO TID carvedilol 12.5 mg Tablet 12.5 mg PO BID Rx Instructions: must administer with a meal/food Discharge Orders: Discharge Order (Routine); Ordered 09/20/25 Ordered By: Carlos Torres Diet: Diabetic diet Activity on Discharge: As tolerated Print Language: Malay Care Plan Goals: manage osteomyelitis Health Concerns: osteomyelitis Plan of Treatment: you are leaving against medical advice can not properly treat outpatient, you could become septic and . In meantime take oral doxycycline follow up with Podiatry, continue aspirin and Plavix Assessment: see above
--- NOTE | 2025-09-20 17:39 | PC.NURSE ---
Pt left AMA at ~1740. IV removed. AMA paperwork signed. Pt educated extensively about the risks of leaving with interperter ventura , Dr. reid, propellant charge zone assembler Romina and this RN. Also podiatry attempted to speak to pt with sprayer hand but was not amenable to conversation.
--- NOTE | 2025-09-21 12:47 | HO.POD-CONS ---
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 The patient underwent angioplasty with Dr. Newman and was cleared for surgical debridement/amputation. The patient today seemed comfortable, denies any pain to his left lower extremity. He states he would like to be discharged home and follow up palpation for any further treatment for his left big toe infection. Denies nausea vomiting fever chills shortness of breath chest pain headache. [facility] Past Medical History Medical History STEMI (ST elevation myocardial infarction) Peripheral neuropathy Chronic wound PAD (peripheral artery disease) Hypertension Diabetes mellitus CAD (coronary artery disease) HFrEF (heart failure with reduced ejection fraction) Family History Family history: reviewed and not pertinent Surgical History Surgical History H/O cardiac catheterization Hx of AKA (above knee amputation) Social History Social History Household Members: Children Housing: Apartment Do you presently have visiting nurse or other home services: No (supposed to have after discharge) Patient Tobacco Use Status: Former Tobacco user service: No Meds Allergies Allergy/AdvReac Type Severity Reaction Status Date / Time No Known Allergies Allergy Verified 09/18/25 10:15 Home Medications ?Medication ?Instructions ?Recorded ?Confirmed ?Last Taken ?Type acetaminophen 325 mg tablet 650 mg PO Q6H PRN Fever/Pain 09/18/25 09/18/25 Unknown History acetaminophen 500 mg tablet 1,000 mg PO Q8H Pain 09/18/25 09/18/25 Unknown History aluminum-mag hydroxide-simethicone 10 ml PO DAILY PRN Constipation 09/18/25 09/18/25 Unknown History 200 mg-200 mg-20 mg/5 mL oral susp aspirin 81 mg tablet 81 mg PO DAILY 09/18/25 09/18/25 Unknown History atorvastatin 80 mg tablet 80 mg PO BEDTIME 09/18/25 09/18/25 Unknown History bisacodyl 10 mg rectal suppository 10 mg OR DAILY PRN Constipation 09/18/25 09/18/25 Unknown History carvedilol 12.5 mg tablet 12.5 mg PO BID 09/18/25 09/18/25 Unknown History clopidogrel 75 mg tablet 75 mg PO DAILY 09/18/25 09/18/25 Unknown History dextrose 40 % oral gel (Glutose-45) 40 g PO NEEDED PRN Hypoglycemia 09/18/25 09/18/25 Unknown History doxycycline monohydrate 100 mg 100 mg PO BID 09/18/25 09/18/25 Unknown History tablet furosemide 20 mg tablet 60 mg PO BID 09/18/25 09/18/25 Unknown History glucagon 1 mg solution for 1 mg subcut NEEDED PRN 09/18/25 09/18/25 Unknown History injection Hypoglycemia insulin glargine 100 unit/mL (3 25 unit subcut BEDTIME 09/18/25 09/18/25 Unknown History mL) subcutaneous pen (Lantus Solostar U-100 Insulin) insulin lispro 100 unit/mL See Protocol subcut DAILY 09/18/25 09/18/25 Unknown History subcutaneous pen losartan 25 mg tablet 25 mg PO DAILY 09/18/25 09/18/25 Unknown History magnesium hydroxide 400 mg/5 mL 30 ml PO DAILY PRN Constipation 09/18/25 09/18/25 Unknown History oral suspension (Milk of Magnesia) metolazone 2.5 mg tablet 2.5 mg PO DAILY 09/18/25 09/18/25 Unknown History oxycodone 5 mg tablet 5 mg PO Q8H PRN Pain 09/18/25 09/18/25 Unknown History pantoprazole 40 mg tablet,delayed 40 mg PO BID@0630,1630 09/18/25 09/18/25 Unknown History release pregabalin 50 mg capsule 50 mg PO TID Nerve Pain 09/18/25 09/18/25 Unknown History sennosides 8.6 mg tablet (senna) 8.6 mg PO BEDTIME PRN Constipation 09/18/25 09/18/25 Unknown History sodium phosphates 19 gram-7 118 ml OR DAILY PRN Constipation 09/18/25 09/18/25 Unknown History gram/118 mL enema (Fleet Enema) tamsulosin 0.4 mg capsule 0.4 mg PO BEDTIME 09/18/25 09/18/25 Unknown History Physical Exam Vital Signs: Vital Signs: Last Vital Signs Temp 98.2 F 09/20/25 16:00 Pulse 85 09/20/25 16:00 Resp 19 09/20/25 16:00 BP 124/67 09/20/25 16:00 Pulse Ox 98 09/20/25 16:00 O2 Del Method Room Air 09/20/25 16:00 O2 Flow Rate 2 09/20/25 12:45 BMI result Body Mass Index 26.6 Extrem: Other: unable to be assessed today due to patient refusal. Previous exam: *Bilateral Lower Extremity Focused Diabetic Foot Exam Vascular: DP left foot 1/, PT non-palpable. CFT<3s to digits, TG warm to cool, moderate left hallux edema. Derm: Left distal halux tuft 3cm x 3cm dry fibrous ulcer with exposed bone. mild hallux erythema and edema. no drainage. Neuro: protective sensation grossly diminished to left lower extremity. Msk: s/p right AKA, no pain to left hallux, ROM intact Results Labs 09/19/25 05:44 09/20/25 05:30 Microbiology Microbiology Results: Microbiology 09/18/25 10:40 Blood - Venous Blood Culture - Preliminary No growth after 48 hours. 09/18/25 10:31 Blood - Venous Blood Culture - Preliminary No growth after 48 hours. Assessment and Plan (1) Diabetic foot ulcer with osteomyelitis: Status: Acute Left foot x-rays: erosive changes to hallux distal phalanx consistent with OM Due to exposed bone, the patient was recommended source control via toe amputation. The patient refused all debridement and amputations surgical procedures. States he would like to be discharged. The patient discussed signing up out AMA with the hospitalist. It was explained that for IV abx treatment to be effective, the exposed bone to the left hallux will need to be resected. He states he will follow up palpation and plan for any/all procedures as outpatient. The patient is not recommended discharge due to his wound that actively probes to bone. The patient is leaving AMA against and is at risk of spread of his OM, cellulitis, necrotizing infection, and sepsis which may lead to amputation and/or . (2) Sepsis: Qualifiers: Sepsis acute organ dysfunction status: unspecified Sepsis type: sepsis due to unspecified organism Qualified Code(s): A41.9 - Sepsis, unspecified organism Status: Acute WBC 12.9 --> 12.2 Temp 100.9 --> 98.2 09/18 Blood cx pending On Vanc/Zosyn (3) PAD (peripheral artery disease): Status: Acute Underwent successful angioplasty with Vascular Procedures Date of Service Date of Service: 09/21/25
== END 2025-09-20 17:43 | disposition left against medical advice (07) | DRG 950 ==
LOC: HO.ED 12:27 → HO.EDOVER 12:48 → HO.S3 19:11
PROVIDERS: Internal Medicine; Physician Assistant Medical; Surgery Vascular Surgery; Admitting Provider Nurse Practitioner Acute Care; Emergency Provider Emergency Medicine; PCP Internal Medicine; Visit Provider Internal Medicine
PROC: 04CN3ZZ Extirpation of Matter from Left Popliteal Artery, Percutaneous Approach (ICD-10-PCS; principal; 2025-09-20 09:00)
DX: T87.43 Infection of amputation stump, right lower extremity (principal); A41.9 Sepsis, unspecified organism; I50.23 Acute on chronic systolic (congestive) heart failure; E11.42 Type 2 diabetes mellitus with diabetic polyneuropathy; L97.529 Non-pressure chronic ulcer of other part of left foot with unspecified severity; M86.172 Other acute osteomyelitis, left ankle and foot; E11.51 Type 2 diabetes mellitus with diabetic peripheral angiopathy without gangrene; E11.69 Type 2 diabetes mellitus with other specified complication; I70.245 Atherosclerosis of native arteries of left leg with ulceration of other part of foot; Y83.5 Amputation of limb(s) as the cause of abnormal reaction of the patient, or of later complication, without mention of misadventure at the time of the procedure; I11.0 Hypertensive heart disease with heart failure; I25.10 Atherosclerotic heart disease of native coronary artery without angina pectoris; Z20.822 Contact with and (suspected) exposure to COVID-19; Z87.891 Personal history of nicotine dependence; Z79.4 Long term (current) use of insulin; Z79.02 Long term (current) use of antithrombotics/antiplatelets; Z79.82 Long term (current) use of aspirin; Z79.899 Other long term (current) drug therapy
CPT/HCPCS: 29581; 36415; 71045; 73564; 73630; 75630; 76937; 80048; 80053; 80307; 82565; 82947; 83605; 83880; 85025; 85027; 85347; 85652; 86140; 87040; 87637; 93306; 97162; 97530; 99152; 99153; 99285; C1714; C1760; C1769; C1887; C1894; C2623; J0131; J1644; J1938; J2250; J2270; J2543; J3010; J3373; J3374; P9047; Q9957; Q9967

== ENCOUNTER → 2025-09-18 10:16 | Outpatient (BNV) | payer OTHER, SELFPAY | PROVIDERS: Visit Provider Radiology Diagnostic Ultrasound | DX: Z03.89 Encounter for observation for other suspected diseases and conditions ruled out (principal); Z89.611 Acquired absence of right leg above knee; R05.9 Cough, unspecified; M89.8X7 Other specified disorders of bone, ankle and foot | CPT/HCPCS: 71045; 73564; 73630 ==

== ENCOUNTER 2025-09-18 12:43 | Outpatient (BNV) | payer OTHER, SELFPAY | END 2025-09-19 07:00 | PROVIDERS: Admitting Provider Nurse Practitioner Acute Care; Emergency Provider Emergency Medicine; Visit Provider Internal Medicine | DX: I27.20 Pulmonary hypertension, unspecified (principal); I51.89 Other ill-defined heart diseases | CPT/HCPCS: 93306 ==

== ENCOUNTER → 2025-09-18 12:43 | Outpatient (BNV) | payer OTHER, SELFPAY | PROVIDERS: Admitting Provider Nurse Practitioner Acute Care; Emergency Provider Emergency Medicine; Visit Provider Nurse Practitioner Acute Care | DX: M86.9 Osteomyelitis, unspecified (principal) | CPT/HCPCS: 99223; 99232 ==

== ENCOUNTER → 2025-09-18 12:43 | Outpatient (BNV) | payer OTHER, SELFPAY | PROVIDERS: Admitting Provider Nurse Practitioner Acute Care; Emergency Provider Emergency Medicine; Visit Provider Internal Medicine Critical Care Medicine | DX: E11.621 Type 2 diabetes mellitus with foot ulcer (principal); E11.69 Type 2 diabetes mellitus with other specified complication; L97.509 Non-pressure chronic ulcer of other part of unspecified foot with unspecified severity; M86.9 Osteomyelitis, unspecified; I73.9 Peripheral vascular disease, unspecified | CPT/HCPCS: 99222 ==

== ENCOUNTER → 2025-09-18 12:43 | Outpatient (BNV) | payer OTHER, SELFPAY | PROVIDERS: Admitting Provider Nurse Practitioner Acute Care; Emergency Provider Emergency Medicine; Visit Provider Surgery Vascular Surgery | DX: I73.9 Peripheral vascular disease, unspecified (principal); E11.621 Type 2 diabetes mellitus with foot ulcer; L97.529 Non-pressure chronic ulcer of other part of left foot with unspecified severity; M86.9 Osteomyelitis, unspecified; I70.245 Atherosclerosis of native arteries of left leg with ulceration of other part of foot | CPT/HCPCS: 37225; 75625; 75710; 76937; 99152; 99222 ==

== ENCOUNTER → 2025-09-18 12:43 | Outpatient (BNV) | payer OTHER, SELFPAY | PROVIDERS: Admitting Provider Nurse Practitioner Acute Care; Emergency Provider Emergency Medicine; Visit Provider Student in an Organized Health Care Education/Training Program | DX: E11.621 Type 2 diabetes mellitus with foot ulcer (principal); E11.69 Type 2 diabetes mellitus with other specified complication; L97.509 Non-pressure chronic ulcer of other part of unspecified foot with unspecified severity; M86.9 Osteomyelitis, unspecified; A41.9 Sepsis, unspecified organism; I73.9 Peripheral vascular disease, unspecified | CPT/HCPCS: 99223 ==

== ENCOUNTER → 2025-09-18 12:43 | Outpatient (BNV) | payer OTHER, SELFPAY | PROVIDERS: Admitting Provider Nurse Practitioner Acute Care; Emergency Provider Emergency Medicine; Visit Provider Internal Medicine | DX: A41.9 Sepsis, unspecified organism (principal); M86.9 Osteomyelitis, unspecified | CPT/HCPCS: 99222 ==